=== PATIENT | male | born 1945 | race Caucasian/White ===

== ENCOUNTER 2018-09-26 10:14 | Inpatient (IN) ==
--- OUTSIDE RECORDS SUMMARY | 2018-09-26 10:26 | External Medical Summary | Continuity of Care Document ---
:1945 Author Name Bri Nolen Address Unavailable Unavailable , Care Team Providers Name Role Phone Brett [email or web address] [email or web address] [place], [place] PILGRAM, A Unavailable Unavailable Unavailable Unavailable Unavailable Assessments Assessed Problems:Anaphylactic reactionAngioedemaAllergic rhinitisPenicillin allergyAdverse drug reaction Problems Hyperlipidemia (272.4) (E78.5) Apnea, sleep (780.57) (G47.30) Anaphylactic reaction (995.0) (T78.2XXA) Angioedema (995.1) (T78.3XXA) Allergic rhinitis (477.9) (J30.9) Penicillin allergy (V14.0) (Z88.0) Adverse drug reaction (E947.9) (T50.905A) Allergies and Adverse Reactions Amoxicillin CAPS (Allergy) Cephalosporins (Allergy) DEPO-Medrol SUSP (Allergy) lisinopril (Allergy) Penicillins (Allergy) Medications Aspirin 81 MG TABS; TAKE 1 TABLET DAILY. Refills: 0 Procedures Procedures not documented Immunizations Immunizations not documented Social History - Smoking Status Never smoker Interventions Discussion/SummaryImpression: 70-year-old male with an anaphylactic reaction question secondary to ingestion of Augmentin. He does appear to have penicillin allergy based on his current testing and should avoid both penicillin and Augmentin. He was felt to have itching from Solu-Medrol during his hospitalization. He does appear to be sensitive to methylprednisolone and should not be given IV Solu-Medrol. Triamcinoloneintramuscularly could be used if steroids are needed. He does have some mild environmental allergiesnone of which appear severe enough to have caused anaphylaxis. Plan: The patient has been advised to avoid penicillin products. He should not be given either Depo-Medrol or IV Solu-Medrol based on his current tests. If he needs steroids IM triamcinolone could beconsidered. His mild environment allergies can be controlled with [id number] antihistamines asneeded. See me as needed for follow-up. Plan of Treatment Planned Observations Planned Goals not documented Results No Known Results Results not documented Encounters Appointment; Oneal Quiroz M.D. 14-Mar-2016 11:30 Encounter Diagnosis: Problem not documented
[2018-09-26] MEDS ORDERED: DEXAMETHASONE **PF** INJ 10 MG/ML VIAL IV STA (10:31)
[2018-09-26] MEDS ORDERED: EPINEPHRINE ADULT AUTO-INJECT 0.3 MG SYR IM STA (10:32)
[2018-09-26] MEDS ORDERED: EPINEPHRINE ADULT AUTO-INJECT 0.3 MG SYR IM ONE (10:34)
[2018-09-26] MEDS ORDERED: RAPID SEQUENCE INDUCTION BAG ONE (10:35)
[2018-09-26] MEDS ORDERED: SODIUM CHLORIDE 0.9% 1000ML 1,000 ML IV SCH (10:45)
[2018-09-26] MEDS: DiphenhydrAMINE HCL 50 MG/ML VIAL IV STA ×3 (10:57→12:12)
[2018-09-26 10:58] LABS: Basophils # (auto) 0.03 K/uL (0-0.2); Basophils % (auto) 0.3 %; Hematocrit (blood only) 43.8 % (42-52); Immature Granulocytes # (auto) 0.02 K/uL (0.00-0.02); Immature Granulocytes % (auto) 0.2 %; Lymphocytes # (auto) 3.37 K/uL (1.2-3.4); Mean Corpuscular Hgb Conc 34.2 g/dL (32-36); Mean Corpuscular Volume 80.1 fL (80-100); Mean Platelet Volume 8.3 fL (7.4-10.4); Monocytes # (auto) 0.94 K/uL (0.11-0.59); Monocytes % (auto) 9.5 %; Neutrophils # (auto) 5.56 K/uL (1.4-6.5); Platelet Count 257 K/uL (130-400); RDW Standard Deviation 40.8 fL (36.4-46.3); Red Blood Count 5.47 M/uL (4.7-6.1); White Blood Count 9.92 K/uL (4.8-10.8)
[2018-09-26 11:07] LABS: INR 1.1 (0.9-1.1); Partial Thromboplastin Time 27.4 Seconds (21.0-31.0); Prothrombin Time 11.6 Seconds (9.0-12.0)
[2018-09-26] MEDS ORDERED: ICU PROTOCOL FOR HYPERGLYCEMIA PRN (11:14)
[2018-09-26] MEDS ORDERED: GLUCOSE 40% GEL 15 GM TUBE PO PRN (11:14)
[2018-09-26] MEDS ORDERED: MIDAZOLAM HCL 1 MG/ML 2ML VIAL IV PRN (11:14)
[2018-09-26] MEDS ORDERED: GLUCOSE 10 TABS/TUBE PO PRN (11:14)
[2018-09-26] MEDS ORDERED: CARBOHYDRATES FOR HYPOGLYCEMIA PO PRN (11:14)
[2018-09-26] MEDS ORDERED: DEXTROSE 50% 50 ML SYRINGE IV PRN (11:14)
[2018-09-26] MEDS ORDERED: fentaNYL citrate 100 MCG/2 ML VIAL IV PRN (11:14)
[2018-09-26] MEDS ORDERED: GLUCAGON FOR INJ 1 MG VIAL SQ PRN (11:14)
[2018-09-26 11:17] LABS: Albumin Level 3.5 gm/dl (3.4-5.0); BUN Creatinine Ratio 9.1 (10-20); Creatinine Clr Calc Pharmacy 86.7 ml/min; Est GFR (African American) 88.4; Est GFR (Non-African American) 76.3; Magnesium 2.1 mg/dl (1.8-2.4); Potassium 3.2 mmol/L (3.5-5.1)
[2018-09-26] MEDS ORDERED: fentaNYL citrate 100 MCG/2 ML VIAL ONE (11:18)
[2018-09-26] MEDS ORDERED: MIDAZOLAM HCL 1 MG/ML 2ML VIAL ONE ×2 (11:18)
[2018-09-26] MEDS ORDERED: PHENYLEPHRINE 1% NA SPR 15 ML BTL PRN (11:19)
[2018-09-26] MEDS ORDERED: GLYCOPYRROLATE 0.2 MG/ML VIAL ONE (11:19)
[2018-09-26 11:20] LABS: Albumin Globulin Ratio 0.8 (0.9-2); Bilirubin,Total 0.9 mg/dl (0.2-1); Globulin 4.2 gm/dl (2.5-4.0); Total Protein 7.7 gm/dl (6.4-8.2)
[2018-09-26] MEDS ORDERED: PROPOFOL IV EMULSION 10 MG/ML 20 ML VIAL IV ONE (11:23)
[2018-09-26] MEDS ORDERED: SUCCINYLCHOLINE CHLORIDE 20 MG/ML 10 ML VIAL ONE (11:23)
[2018-09-26] MEDS ORDERED: PROPOFOL IV EMULSION 10 MG/ML 100 ML VIAL IV ONE (11:39)
--- NOTE | 2018-09-26 11:52 | Critical Care Consultation ---
Date of Consultation September 26, 2018 Assessment & Plan (1) Angioedema: Reason Critically Ill: 73-year-old male with a past medical history of anaphylactic reaction to Augmentin, itching reaction to Solu-Medrol who presented to the ED with difficulty breathing when he awoke and was found to hav e critical angioedema of the larynx. He was transferred to the ICU for intubation and airway protection. Neuro - CAM ICU: POSITIVE Intubated. Sedation: Propofol drip, currently 20mcg/kg/min Analgesia: Fentanyl 50-100mcg IV Q2H PRN Cardiac - History of hypertension not on antihypertensives Aspirin held in setting of unknown angioedema Respiratory - Angioedema of unclear origin. 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 No history of MAGALY treatment. No new medications. Intubated for respiratory support. Famotidine 20 mg every 12 hours Benadryl 50 mg every 8 hours Dexamethasone 4 mg daily GI - N.p.o. Normosol 100 cc/h IVFM RENAL/LYTES - Sodium 136, potassium 3.2, chloride 103, carbon dioxide 26, creatinine 0.99 No signs of JALYN Replace lytes as needed. - Ruffin catheter in place ENDO - No history of diabetes Glucose 139-172 in the setting of steroid dosing ICU insulin protocol, SSI HEME - Hemoglobin 15.0, no clinical signs of bleeding ID - White blood cell count 9.92, no leukocytosis, afebrile No signs of infection at this time INTEGUMENTARY - Intact, atraumatic. No skin lesions, no acute integumentary process No urticaria with his presentation. See angioedema of the pharynx as noted above LINES/IV ACCESS - PIVs intact. DVT PROPHYLAXIS - Heparin 5000 units every 8 hours DVT prophylaxis Thank you for allowing us to be part of this patient's care. Please refer to Dr. Mcconnell's documentation for any further recommendations. Supervising Physician Co-Signing Physician Notes Dr. Arce was resident physician during care of patient. I separately evaluated patient for rodriguez portions of the history and the exam. I was present during the critical portion of medical decision making, and I discussed the case with the resident. I generally agree with the findings and plan. Patient required emergent intubation for laryngeal edema. Please refer to intubation note. We will continue with H2-meme 24 hours of H1 meme and steroids for 24 hours I have personally spent 50 minutes of critical care time in the direct management of this patient. This is a life/limb threatening event. This includes time spent evaluating patient, direct bedside care, chart review, placing orders, interpretation of diagnostic studies, discussion with consulta nts, patient, and/or family members regarding treatment decisions, as well as other required patient management activities. This time is exclusive of all separately billable procedures, and teaching time and separate from and in addition to any other critical care service time. History of Present Illness Reason for Consultation: Angioedema with airway compromise Requesting Physician: Luz Maria Friend DO Attending Physician: Luz Maria Friend DO History of Present Illness History unobtainable from the patient due to intubation status. On chart review he is a 73-year-old male who presented to the ED with a swollen tongue and difficulty breathing when he awoke today. He noted that he had a sore feeling tongue change in the quality of his voice last night. He received 1 dose of his EpiPen prehospitalization with no improvement in symptoms. He has a history of past anaphylactic reaction to Augmentin. He had not been noted to be taking any new medication and has no recent infections. He did not have any skin changes including itchiness, rash, or urticaria. In the emergency department he received diphenhydramine 50 mg, famotidine 20 mg, Decadron 10 mg, a repeat dose of diphenhydramine 50 mg, 2 doses of epinephrine via EpiPen, and ranitidine 50 mg prior to transfer to arrival in the ICU. On arrival to the ICU he was intubated for airway protection. Allergies Allergy/AdvReac Type Severity Reaction Status Date / Time lisinopril Allergy Severe LIP Verified 01/26/16 17:38 SWELLING,?FROM CPAP OR LISINOPRIL amoxicillin Allergy Intermediate hives,swell Verified 01/23/16 21:05 ing/redness clavulanic acid Allergy Intermediate hives,swell Verified 01/23/16 21:05 ing/redness Penicillins AdvReac Intermediate SHORTNESS Verified 01/24/16 12:02 OF BREATH Cephalosporins AdvReac Unknown KEFLEX-FEVER Verified 01/23/16 20:00 BLISTERS Home Medications Home Medications Medication Instructions Recorded Confirmed Type aspirin [Aspirin Low Dose] 81 mg PO DAILY 09/26/18 09/26/18 History Patient History Medical History HLD (hyperlipidemia) (Chronic) Morbid obesity (Chronic) Sigmoid diverticulosis (Chronic) Hypertension (Chronic) Sleep apnea (Chronic) Drug reaction (Acute) Surgical History H/O colonoscopy (Chronic) " 10/20/2013 internal hemorrhoids, otherwise stable, repeat 5 years " Family History Father AIDS Mother Multiple myeloma Brother Alzheimer disease Other Family history non-contributory Social History Preferred Language: Tuvaluan Communication Ability: Vented. 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 Appears distressed. Cooperative. Skin: No rash, no urticaria. Angioedema as noted below HEENT: Atraumatic, normocephalic. Critical angioedema of the oropharynx and laryngo-pharynx appreciated on exam and fiberoptic visualization. Tongue swelling present. No angioedema of the lips or face appreciated. Pulm: CTAB A&P. -wheezes, -rales, -rhonchi. Symmetrical chest rise. No increased work of breathing. No stridor appreciated. Cardiac: RRR, -mrg. Radial pulses intact and symmetrical. Abdominal: Nontender, nondistended, soft. BS present. Results & Data Vital Signs (Past 12 Hours) Vital Signs Temp Pulse Resp BP Pulse Ox 09/26/18 10:57 116 H 24 161/98 H 100 09/26/18 10:34 97 09/26/18 10:30 37.4 C 107 H 22 189/96 H 97 Resident Activity Tracking Resident Involvement: Resident Care Provided Care Provided: Adult Hospital Medicine (1) Angioedema Encounter type: initial encounter Qualified Code(s): T78.3XXA - Angioneurotic edema, initial encounter
[2018-09-26] MEDS: PROPOFOL 1,000 MG/100 ML VIAL IV PRN ×3 (12:00→22:49)
--- NOTE | 2018-09-26 12:01 | History & Physical Report ---
Date of Service September 26, 2018 Assessment & Plan (1) Anaphylactic reaction: (2) Angioedema: This is a 73-year-old male who has a significant past medical history of HTN, HLD, morbid obesity, PATEL on CPAP who presents to [facility] secondary to angioedema. In ED pt received benadryl 50mg x 2, Epi 0.3mg x 2, IV Dexamethasone Patient intubated under fiberoptic bronchoscope in ICU Patient under care of Audiometrist Dr. Mcconnell Please refer to railcar switcher documentation for further assessment and plan admit to ICU continue on IV Steroid x 48hr Continue IV famotidine Continue IV benadryl 50mg q8 Hyperglycemic management per ICU team Labs in a.m. Pt only outpt med is ASA 81mg which he took this morning, will discontinue for now (3) Hypertension: Blood pressure elevated likely in setting of allergic reaction Had been on lisinopril prior but was discontinued secondary to episode of angioedema Monitor BP and treat accordingly (4) HLD (hyperlipidemia): Diet controlled Had been on statin in past but discontinued after episode of angioedema (5) Sleep apnea: Patient uses CPAP at HS (6) Morbid obesity: BMI 45.6 encourage lifestyle modifications when able (7) DVT prophylaxis: Heparin SQ/SCDS Disposition: to be determined Follow up: PCP Dr. Nicole upon discharge Patient was seen and examined in collaboration with Dr. Friend, please see addendum Starting 09/27/18 patient will be under the care of Dr. Davalos History of Present Illness Chief Complaint: Angioedema Primary Care Provider: Elijah Garnett MD This is a 73-year-old male who has a significant past medical history of HTN, HLD, morbid obesity, PATEL on CPAP who presents to [facility] secondary to angioedema. History provided from records and other providers. Only medication took this morning was aspirin. Patient presented to ED with shortness of breath and airway swelling. He was transferred to ICU for intubation under fiberoptic bronchoscope. Unable to obtain history or ROS from patient. Of note patient does have a significant past medical history of anaphylaxis and angioedema in past back in January 2016. He presented to ED 01/22/2016 with swelling around left eye and rash on multiple area of scalp. He had similar reaction 1 month prior which was thought to be secondary to lisinopril therefore this was discontinued. He further was felt to have possibly had cellulitis and given 1 dose of IV Unasyn along with Augmentin. When walking outside the next day he started developing shortness of breath weakness and watering of his eyes that became progressively worse. He took Benadryl without improvement and therefore was sent to ED. He was given Benadryl and IV steroids and was admitted. Did not require intubation. There was also question if he had allergic reaction to Solu-Medrol giving increased rash and itching so this was eventually discontinued. He was discharged home from his hospitalization on Zyrtec 10 mg twice daily. He did follow up with outpatient sas programmer analyst Dr. Quiroz for rast testing. He tested + for seasonal allergies. Allergies Allergy/AdvReac Type Severity Reaction Status Date / Time lisinopril Allergy Severe LIP Verified 01/26/16 17:38 SWELLING,?FROM CPAP OR LISINOPRIL amoxicillin Allergy Intermediate hives,swell Verified 01/23/16 21:05 ing/redness clavulanic acid Allergy Intermediate hives,swell Verified 01/23/16 21:05 ing/redness Penicillins AdvReac Intermediate SHORTNESS Verified 01/24/16 12:02 OF BREATH Cephalosporins AdvReac Unknown KEFLEX-FEVER Verified 01/23/16 20:00 BLISTERS Home Medications Home Medications Medication Instructions Recorded Confirmed Type aspirin [Aspirin Low Dose] 81 mg PO DAILY 09/26/18 09/26/18 History Past Med/Surg History Medical History HLD (hyperlipidemia) (Chronic) Morbid obesity (Chronic) Sigmoid diverticulosis (Chronic) Hypertension (Chronic) Sleep apnea (Chronic) Drug reaction (Acute) Surgical History H/O colonoscopy (Chronic) " 10/20/2013 internal hemorrhoids, otherwise stable, repeat 5 years " Family History Father AIDS Mother Multiple myeloma Brother Alzheimer disease Other Family history non-contributory Social History Preferred Language: Iraqi Communication Ability: Effective 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 Beliefs That Will Affect Care: None marital status: / Current Living Situation: Family Other Information That Helps Us Care for You: No Feels Safe at Home: Yes Safety Concerns: Feels Safe At This Time Smoking Status: Former smoker Do You Dip or Chew Tobacco: No Smoking End Date: +40 years Second Hand Exposure: No Tobacco Cessation Education Requested by Patient: No Hx Alcohol Use: No Hx Substance Use: No Review of Systems Review of Systems: Unobtainable due to endotracheal tube Physical Exam Physical Exam: Gen: WD/WN, M, + intubated in no resp distress, drowsy but opens eyes to verbal stimulation, lying in bed, Head: Normocephalic, Atraumatic Eyes: Sclera normal, b/l conjunctival injection, PERRLA ENT: +obscured due to ET tube Neck: supple, no adenopathy, No JVD, Resp: +ET Tube, Clear to auscultation b/l with good chest wall rise, normal insp/exp effort, no accessory muscle use CV: regular rate, regular rhythm, no murmur, rub, gallop, or ectopy Abd: +BS x 4, protuberant abd, soft, nontender, nondistended Musculoskeletal: moves extremities active rom x 4, strength intact, good venetian blind washer strength Extremities: No edema bilaterally Skin: warm, moist, no rash, negative turgor, cap refill < 2sec Neuro:unable to assess given ET tube/somnolence : deferred Results & Data Vital Signs (Past 12 Hours) Vital Signs Temp Pulse Resp BP Pulse Ox 09/26/18 10:57 116 H 24 161/98 H 100 09/26/18 10:34 97 09/26/18 10:30 37.4 C 107 H 22 189/96 H 97 Laboratory Results Short CBC 09/26/18 Range/Units 10:43 WBC 9.92 (4.8-10.8) K/uL Hgb 15.0 (14.0-18.0) g/dL Hct 43.8 (42-52) % Plt Count 257 (130-400) K/uL BMP 09/26/18 10:43 Sodium 136 Potassium 3.2 L Chloride 103 Carbon Dioxide 26 BUN 9 Creatinine 0.99 Glucose 139 H Calcium 9.0 Liver Function 09/26/18 Range/Units 10:43 Total Bilirubin 0.9 (0.2-1) mg/dl AST 19 (15-37) U/L ALT 17 (12-78) U/L Alkaline Phosphatase 75 (45-117) U/L Albumin 3.5 (3.4-5.0) gm/dl Medications Administered Discontinued Medications Epinephrine HCl (Epipen) Confirm Administered Dose 0.3 mg IM .STK-MED ONE Stop: 09/26/18 10:35 Last Admin: 09/26/18 10:37 Dose: 0.3 mg Documented by: [id number] Epinephrine HCl (Epipen) 0.3 mg IM NOW STA Stop: 09/26/18 10:33 Last Admin: 09/26/18 10:54 Dose: Not Given Documented by: [id number] Miscellaneous () Confirm Administered Dose 1 ea .ROUTE .STK-MED ONE Stop: 09/26/18 10:36 Last Admin: 09/26/18 10:57 Dose: Not Given Documented by: [id number] ECG Rate (beats per minute): 105 Rhythm: sinus tachycardia Code Status & VTE Plan Code Status Full Code Supervising Physician Co-Signing Physician Notes I have seen and examined the patient and have discussed the case with the provider above. I agree with the assessment and plan as stated with the following exceptions. Mr. Samson is intubated and sedated, therefore, I am unable to obtain a history and it is uncertain what his trigger for anaphylaxis was. He has a h/o laryngeal edema in the past and has seen an sas programmer analyst. Will obtain a C4 level, and if low, this should prompt investigation into hereditary angioedema or acquired C1 inhibitor deficiency. Also ordered a tryptase level within a few hours after the event which may help to confirm that this was a mast cell mediated event. Cont supportive treatment as outlined by ICU staff. DO Phuc
[2018-09-26] MEDS ORDERED: PHARMACY GLYCEMIC MGMT CONSULT PRN (12:05)
--- NOTE | 2018-09-26 12:08 | Procedure Note ---
Procedure Note Date of Service September 26, 2018 Procedure Date: Noted above Procedure: Endotracheal intubation Pre-procedure Diagnosis: Angioedema Post-procedure Diagnosis: same as above Prior to Procedure: Informed Consent: emergent Attending Staff: Semaj Mccnonell DO The identity of the patient was confirmed and a bedside time out was performed. Description of Procedure: Patient was evaluated and required intubation for impending respiratory failure. The patient was prepared in the usual fashion. A fiberoptic bronchoscope was used. A 7.5 mm inner diameter endotrachial tube was placed endotracheally to 25 cm at the teeth. With oral lidocaine for anesthesia and 100 mg ketamine IV fiberoptic bronchoscope was used to enter the airway. The endotracheal tube was noted in the airway chest rise was bilateral. Bilateral breath sounds were heard without air sounds in the abdomen. Mist was noted in the endotracheal tube. End-tidal CO2 measurement was positive. Chest x-ray shows proper endotracheal tube placement. Complications: None Findings: Significant edema of the tongue, uvula, laryngeal opening Specimens: Not applicable Estimated blood loss: Zero Coding
[2018-09-26] MEDS ORDERED: PEPTAMEN 1.5 CAL 1,000 ML BAG PO PRN (12:12)
[2018-09-26] MEDS: fentaNYL citrate 100 MCG/2 ML VIAL IV PRN ×3 (12:14→19:58)
[2018-09-26] MEDS: FAMOTIDINE 20 MG in SYRINGE 3 ML IV SCH (12:15)
--- NOTE | 2018-09-26 12:29 | XRay Report ---
SINGLE VIEW CHEST CLINICAL HISTORY: Endotracheal tube placement. FINDINGS: An AP, portable, upright chest radiograph is compared to chest x-ray and chest CT dated 11/17. The examination is degraded by portable technique and patient rotation. An endotracheal tube has been placed. The tip terminates 3.5 cm above the leon. An enteric tube has also been placed and projects below the diaphragm. The heart is mildly enlarged. The pulmonary vasculature is noncongeste d. Pleural thickening at the left lung base is similar to previous. There is bibasilar atelectasis. N o large pleural effusion or Pneumothorax is seen. The bony thorax is grossly intact. IMPRESSION: 1. Endotracheal and enteric tubes have been placed as detailed above. 2. No airspace consolidation or large pleural effusion is identified. Electronically signed by: Hubert Magallon M.D. 09/26/2018 12:27 PM
[2018-09-26] MEDS: MIDAZOLAM HCL 1 MG/ML 2ML VIAL IV PRN ×2 (13:15→22:10)
[2018-09-26] MEDS: NORMOSOL-R 1,000 ML IV SCH (13:16)
[2018-09-26] MEDS: DiphenhydrAMINE HCL 50 MG/ML VIAL IV SCH ×2 (13:16→22:13)
[2018-09-26] MEDS: HEPARIN SOD 5,000 UNIT/0.5 ML VIAL SQ SCH ×2 (15:05→22:17)
[2018-09-26] MEDS: PEPTAMEN INTENSE VHP 1.0 CAL 1,000 ML BAG OG SCH (15:06)
--- NOTE | 2018-09-26 15:20 | Emergency Department Note ---
Entered by Tiffanie Rodgers acting as a scribe for History of Present Illness General Chief complaint: Allergic Reaction Stated complaint: sob/ facial & throat swelling Source: patient History of Present Illness Provider complaint: Swollen tongue Onset (ago): day(s) 1 Location: mouth (tongue ) Pain Consistency: + other (worsening ) Quality: + constant Associated symptoms: + other (Positive: swollen tongue, raspy voice, difficulty breathing Negative: tooth pain, tooth infections, itchiness); no rash The patient is a 73 year old male who presents to the ED with complaints of worsening swollen tongue that started 8 hours ago. The patient reports his tongue felt sore last night and his voice was raspy. He reports he could not breathe when he woke up. The patient states he was given EpiPen prehospitalization which did not help. The patient denies taking any medicine, tooth pain, tooth infections, rash, or itchiness. Home Medications Home Medications Medication Instructions Recorded Confirmed Type aspirin [Aspirin Low Dose] 81 mg PO DAILY 09/26/18 09/26/18 History Allergies Allergy/AdvReac Type Severity Reaction Status Date / Time lisinopril Allergy Severe LIP Verified 01/26/16 17:38 SWELLING,?FROM CPAP OR LISINOPRIL amoxicillin Allergy Intermediate hivesswetarsha Verified 01/23/16 21:05 ing/redness clavulanic acid Allergy Intermediate hives,swell Verified 01/23/16 21:05 ing/redness Penicillins AdvReac Intermediate SHORTNESS Verified 01/24/16 12:02 OF BREATH Cephalosporins AdvReac Unknown KEFLEX-FEVER Verified 01/23/16 20:00 BLISTERS Past Med/Surg History Medical History HLD (hyperlipidemia) (Chronic) Morbid obesity (Chronic) Sigmoid diverticulosis (Chronic) Hypertension (Chronic) Sleep apnea (Chronic) Drug reaction (Acute) Surgical History H/O colonoscopy (Chronic) " 10/20/2013 internal hemorrhoids, otherwise stable, repeat 5 years " Family History Father AIDS Mother Multiple myeloma Brother Alzheimer disease Other Family history non-contributory Social History Preferred Language: Slovak Communication Ability: Vented. Blood Splatter Analyst Required: No Beliefs That Will Affect Care: None marital status: / Current Living Situation: Family Other Information That Helps Us Care for You: No Feels Safe at Home: Yes Safety Concerns: Feels Safe At This Time Smoking Status: Former smoker Do You Dip or Chew Tobacco: No Smoking End Date: +40 years Second Hand Exposure: No Tobacco Cessation Education Requested by Patient: No Hx Alcohol Use: No Hx Substance Use: No Review of Systems See HPI for pertinent positives & negatives. and A total of 10 systems reviewed and were otherwise negative Physical Exam Vital Signs Vital Signs - 24 hr 09/26/18 19:00 09/26/18 19:31 09/26/18 19:45 Temperature End-Tidal CO2 33 34 Pulse Rate 75 72 72 Pulse Rate from SpO2 Sensor 75 Respiratory Rate 14 Respiratory Effort / Characteristics Respiratory Depth Respiratory Pattern Blood Pressure 99/67 L Blood Pressure Mean 77 Pulse Oximetry 99 99 Pulse Oximetry [Right Index Finger] Oxygen Delivery Method Oxygen Delivery Method [Right Index Finger] Oxygen Flow Rate Fraction of Inspired Oxygen 40 09/26/18 19:59 09/26/18 20:00 09/26/18 20:01 Temperature 36.6 C End-Tidal CO2 42 38 Pulse Rate 84 83 Pulse Rate from SpO2 Sensor 84 83 Respiratory Rate Respiratory Effort / Characteristics Mechanically Ventilated Respiratory Depth Respiratory Pattern Regular Blood Pressure 146/94 H 147/89 H Blood Pressure Mean 111 108 Pulse Oximetry 98 98 Pulse Oximetry [Right Index Finger] Oxygen Delivery Method Mechanical Vent Oxygen Delivery Method [Right Index Finger] Oxygen Flow Rate Fraction of Inspired Oxygen 30 09/26/18 21:00 09/26/18 22:00 09/26/18 23:00 Temperature End-Tidal CO2 34 36 34 Pulse Rate 73 72 66 Pulse Rate from SpO2 Sensor 74 72 66 Respiratory Rate Respiratory Effort / Characteristics Respiratory Depth Respiratory Pattern Blood Pressure 106/74 120/76 118/74 Blood Pressure Mean 84 90 88 Pulse Oximetry 97 97 96 Pulse Oximetry [Right Index Finger] Oxygen Delivery Method Oxygen Delivery Method [Right Index Finger] Oxygen Flow Rate Fraction of Inspired Oxygen 09/26/18 23:15 09/27/18 00:00 09/27/18 01:00 Temperature 36.6 C End-Tidal CO2 34 33 37 Pulse Rate 67 67 65 Pulse Rate from SpO2 Sensor 67 65 Respiratory Rate 12 Respiratory Effort / Characteristics Respiratory Depth Respiratory Pattern Blood Pressure 122/76 115/75 Blood Pressure Mean 91 88 Pulse Oximetry 95 96 95 Pulse Oximetry [Right Index Finger] Oxygen Delivery Method Oxygen Delivery Method [Right Index Finger] Oxygen Flow Rate Fraction of Inspired Oxygen 30 30 09/27/18 01:43 09/27/18 02:00 09/27/18 02:05 Temperature End-Tidal CO2 34 35 Pulse Rate 63 64 62 Pulse Rate from SpO2 Sensor 65 Respiratory Rate 12 Respiratory Effort / Characteristics Respiratory Depth Respiratory Pattern Blood Pressure 116/77 Blood Pressure Mean 90 Pulse Oximetry 97 97 Pulse Oximetry [Right Index Finger] Oxygen Delivery Method Oxygen Delivery Method [Right Index Finger] Oxygen Flow Rate Fraction of Inspired Oxygen 30 09/27/18 04:00 09/27/18 05:10 09/27/18 07:00 Temperature 36.5 C End-Tidal CO2 38 39 Pulse Rate 58 L 64 Pulse Rate from SpO2 Sensor 64 Respiratory Rate 14 13 Respiratory Effort / Characteristics Respiratory Depth Respiratory Pattern Blood Pressure 146/88 H Blood Pressure Mean 107 Pulse Oximetry 96 98 Pulse Oximetry [Right Index Finger] Oxygen Delivery Method Mechanical Vent Oxygen Delivery Method [Right Index Finger] Oxygen Flow Rate Fraction of Inspired Oxygen 30 30 30 09/27/18 07:52 09/27/18 08:00 09/27/18 09:00 Temperature End-Tidal CO2 42 35 39 Pulse Rate 66 64 58 L Pulse Rate from SpO2 Sensor 63 58 L Respiratory Rate 15 14 10 L Respiratory Effort / Characteristics Mechanically Ventilated Respiratory Depth Normal Respiratory Pattern Blood Pressure 137/90 133/83 Blood Pressure Mean 105 99 Pulse Oximetry 99 98 99 Pulse Oximetry [Right Index Finger] Oxygen Delivery Method Mechanical Vent Mechanical Vent Oxygen Delivery Method [Right Index Finger] Oxygen Flow Rate Fraction of Inspired Oxygen 30 30 30 09/27/18 10:00 09/27/18 10:39 09/27/18 11:00 Temperature End-Tidal CO2 36 25 37 Pulse Rate 54 L 78 72 Pulse Rate from SpO2 Sensor 60 71 Respiratory Rate 15 2 L 15 Respiratory Effort / Characteristics Respiratory Depth Respiratory Pattern Blood Pressure 178/96 H 176/94 H Blood Pressure Mean 123 121 Pulse Oximetry 99 100 95 Pulse Oximetry [Right Index Finger] Oxygen Delivery Method Mechanical Vent Mechanical Vent Oxygen Delivery Method [Right Index Finger] Oxygen Flow Rate Fraction of Inspired Oxygen 30 30 30 09/27/18 11:14 09/27/18 12:00 09/27/18 13:00 Temperature 36.7 C 36.7 C End-Tidal CO2 38 37 Pulse Rate 69 70 70 Pulse Rate from SpO2 Sensor 67 70 Respiratory Rate 12 Respiratory Effort / Characteristics Respiratory Depth Respiratory Pattern Blood Pressure 161/96 H 164/94 H Blood Pressure Mean 117 117 Pulse Oximetry 94 97 Pulse Oximetry [Right Index Finger] 100 Oxygen Delivery Method Mechanical Vent Oxygen Delivery Method [Right Index Finger] Mechanical Vent Oxygen Flow Rate 30 Fraction of Inspired Oxygen 30 09/27/18 14:00 09/27/18 14:02 09/27/18 15:00 Temperature End-Tidal CO2 40 34 36 Pulse Rate 71 70 67 Pulse Rate from SpO2 Sensor 71 66 Respiratory Rate 12 Respiratory Effort / Characteristics Respiratory Depth Respiratory Pattern Blood Pressure 140/94 157/96 H Blood Pressure Mean 109 116 Pulse Oximetry 96 96 97 Pulse Oximetry [Right Index Finger] Oxygen Delivery Method Mechanical Vent Mechanical Vent Oxygen Delivery Method [Right Index Finger] Oxygen Flow Rate 30 30 Fraction of Inspired Oxygen 30 09/27/18 16:00 09/27/18 17:00 09/27/18 18:12 Temperature End-Tidal CO2 47 40 37 Pulse Rate 74 71 80 Pulse Rate from SpO2 Sensor 75 71 Respiratory Rate 28 H Respiratory Effort / Characteristics Respiratory Depth Respiratory Pattern Blood Pressure 174/91 H 150/88 H Blood Pressure Mean 118 108 Pulse Oximetry 100 96 97 Pulse Oximetry [Right Index Finger] Oxygen Delivery Method Mechanical Vent Mechanical Vent Oxygen Delivery Method [Right Index Finger] Oxygen Flow Rate Fraction of Inspired Oxygen 30 30 30 Vital signs reviewed. General: Well-appearing, morbidly obese, in no significant distress. HEENT: No scleral icterus, PERRLA, neck supple. Atraumatic. Swollen tongue. Soft palate not visualized. Swelling to the submandibular region. Muffled voice Cardiovascular: Tachycardic rate and regular rhythm, no extra sounds. Pulmonary: Clear to auscultation bilaterally, normal work of breathing. Abdomen: Soft, nontender, nondistended, positive bowel sounds. Musculoskeletal: Atraumatic, no peripheral edema. Neurologic: Patient awake alert and oriented x 3. Skin: Warm, dry, no rash Course 1029: Past medical records reviewed. The patient was evaluated in room A10 but moved to A1 for acuity. A complete history and physical examination was performed. 1040: Anesthesiology was consulted, Dr. Leong The patient is in the ICU. Administered Medications Diphenhydramine HCl (Benadryl) 50 mg IV Q8 [facility] Stop: 10/26/18 13:59 Last Admin: 09/27/18 14:47 Dose: 50 mg Documented by: [id number] Admin: 09/27/18 05:22 Dose: 50 mg Documented by: [id number] Admin: 09/26/18 22:13 Dose: 50 mg Documented by: [id number] Admin: 09/26/18 13:16 Dose: 50 mg Documented by: [id number] Fentanyl Citrate (Fentanyl Citrate) 50 mcg IV Q2H PRN PRN Reason: Moderate Pain (4,5,6) Stop: 10/10/18 11:13 Last Admin: 09/27/18 16:02 Dose: 50 mcg Documented by: [id number] Fentanyl Citrate (Fentanyl Citrate) 100 mcg IV Q2H PRN PRN Reason: Severe Pain (7,8,9,10) Stop: 10/10/18 11:13 Last Admin: 09/27/18 03:12 Dose: 100 mcg Documented by: [id number] Admin: 09/27/18 00:13 Dose: 100 mcg Documented by: [id number] Admin: 09/26/18 19:58 Dose: 100 mcg Documented by: [id number] Admin: 09/26/18 17:15 Dose: 100 mcg Documented by: [id number] Admin: 09/26/18 12:14 Dose: 100 mcg Documented by: [id number] Heparin Sodium (Porcine) (Heparin Sodium (Porcine)) 5,000 units SQ Q8H [facility] Stop: 10/26/18 13:59 Last Admin: 09/27/18 14:47 Dose: 5,000 units Documented by: [id number] Cosigned by: [id number] Admin: 09/27/18 05:24 Dose: 5,000 units Documented by: [id number] Cosigned by: [id number] Admin: 09/26/18 22:17 Dose: 5,000 units Documented by: [id number] Cosigned by: [id number] Admin: 09/26/18 15:05 Dose: 5,000 units Documented by: [id number] Cosigned by: [id number] Parenteral Electrolytes (Normosol-R) 1,000 mls @ 100 mls/hr IV .Q10H [facility] Stop: 10/26/18 11:13 Last Admin: 09/27/18 10:26 Dose: 100 mls/hr Documented by: [id number] Infusion: 09/27/18 10:26 Dose: 100 mls/hr Documented by: [id number] Admin: 09/27/18 00:31 Dose: 100 mls/hr Documented by: [id number] Infusion: 09/26/18 23:16 Dose: 100 mls/hr Documented by: [id number] Admin: 09/26/18 13:16 Dose: 100 mls/hr Documented by: [id number] Famotidine 20 mg/ Syringe 5 mls @ 2.5 mls/min IV Q12H [facility] Stop: 10/26/18 12:14 Last Admin: 09/27/18 11:42 Dose: 2.5 mls/min Documented by: [id number] Admin: 09/27/18 00:38 Dose: 2.5 mls/min Documented by: [id number] Admin: 09/26/18 12:15 Dose: 2.5 mls/min Documented by: [id number] Insulin Aspart (Novolog Flexpen) 0 units SC Q4 [facility] Stop: 10/26/18 17:59 Last Admin: 09/27/18 16:29 Dose: 1 units Documented by: [id number] Cosigned by: [id number] Admin: 09/27/18 12:02 Dose: 1 units Documented by: [id number] Cosigned by: [id number] Admin: 09/27/18 08:11 Dose: 1 units Documented by: [id number] Cosigned by: [id number] Admin: 09/27/18 04:48 Dose: 1 units Documented by: [id number] Cosigned by: [id number] Admin: 09/27/18 00:35 Dose: 2 units Documented by: [id number] Cosigned by: [id number] Admin: 09/26/18 20:33 Dose: 1 units Documented by: [id number] Cosigned by: [id number] Midazolam HCl (Versed) 2 mg IV Q2H PRN PRN Reason: agitation/anxiety Stop: 10/26/18 11:13 Last Admin: 09/27/18 17:47 Dose: 2 mg Documented by: [id number] Admin: 09/27/18 14:48 Dose: 2 mg Documented by: [id number] Admin: 09/27/18 11:35 Dose: 2 mg Documented by: [id number] Admin: 09/27/18 07:43 Dose: 2 mg Documented by: [id number] Admin: 09/27/18 02:37 Dose: 2 mg Documented by: [id number] Admin: 09/26/18 22:10 Dose: 2 mg Documented by: [id number] Admin: 09/26/18 13:15 Dose: 2 mg Documented by: [id number] Nutritional Formula (Peptamen Intense Vhp) 1,000 ml [facility]G [facility]; Protocol Stop: 10/26/18 13:59 Last Admin: 09/27/18 18:34 Dose: 1,000 ml Documented by: [id number] Admin: 09/26/18 15:06 Dose: 1,000 ml Documented by: [id number] Discontinued Medications Dexamethasone Sodium Phosphate (Decadron Pf) 10 mg IV NOW STA Stop: 09/26/18 10:32 Last Admin: 09/26/18 12:11 Dose: Not Given Documented by: [id number] Diphenhydramine HCl (Benadryl) 50 mg IV NOW STA Stop: 09/26/18 10:32 Last Admin: 09/26/18 12:12 Dose: Not Given Documented by: [id number] Epinephrine HCl (Epipen) Confirm Administered Dose 0.3 mg IM .STK-MED ONE Stop: 09/26/18 10:35 Last Admin: 09/26/18 10:37 Dose: 0.3 mg Documented by: [id number] Epinephrine HCl (Epipen) 0.3 mg IM NOW STA Stop: 09/26/18 10:33 Last Admin: 09/26/18 10:54 Dose: Not Given Documented by: [id number] Ranitidine HCl 50 mg/ Dextrose 102 mls @ 200 mls/hr IV NOW STA Stop: 09/26/18 11:01 Last Admin: 09/26/18 12:11 Dose: Not Given Documented by: [id number] Sodium Chloride (Nss 1000ml) 1,000 mls @ 100 mls/hr IV .Q10H [facility] Stop: 09/26/18 20:44 Last Admin: 09/26/18 12:10 Dose: Not Given Documented by: [id number] Propofol (Diprivan) 1,000 mg in 100 mls @ 11.529 mls/hr IV .Q8H41M PRN; Protocol PRN Reason: Titration Stop: 09/29/18 11:13 Last Titration: 09/27/18 14:04 Dose: 0 mcg/kg/min, 0 mls/hr Documented by: [id number] Titration: 09/27/18 07:46 Dose: 0 mcg/kg/min, 0 mls/hr Documented by: [id number] Titration: 09/27/18 07:26 Dose: 15 mcg/kg/min, 11.5 mls/hr Documented by: [id number] Cosigned by: [id number] Admin: 09/27/18 04:17 Dose: 20 mcg/kg/min, 15.4 mls/hr Documented by: [id number] Cosigned by: [id number] Titration: 09/27/18 04:17 Dose: 15 mcg/kg/min, 11.5 mls/hr Documented by: [id number] Cosigned by: [id number] Titration: 09/27/18 02:44 Dose: 15 mcg/kg/min, 11.5 mls/hr Documented by: [id number] Admin: 09/26/18 22:49 Dose: 20 mcg/kg/min, 15.4 mls/hr Documented by: [id number] Cosigned by: [id number] Titration: 09/26/18 20:53 Dose: 20 mcg/kg/min, 15.4 mls/hr Documented by: [id number] Cosigned by: [id number] Titration: 09/26/18 19:08 Dose: 20 mcg/kg/min, 15.4 mls/hr Documented by: [id number] Cosigned by: [id number] Titration: 09/26/18 18:02 Dose: 20 mcg/kg/min, 15.4 mls/hr Documented by: [id number] Titration: 09/26/18 15:09 Dose: 25 mcg/kg/min, 19.2 mls/hr Documented by: [id number] Admin: 09/26/18 15:07 Dose: 30 mcg/kg/min, 23.1 mls/hr Documented by: [id number] Cosigned by: [id number] Titration: 09/26/18 15:07 Dose: 30 mcg/kg/min, 23.1 mls/hr Documented by: [id number] Cosigned by: [id number] Titration: 09/26/18 12:35 Dose: 30 mcg/kg/min, 23.1 mls/hr Documented by: [id number] Titration: 09/26/18 12:30 Dose: 25 mcg/kg/min, 19.2 mls/hr Documented by: [id number] Titration: 09/26/18 12:15 Dose: 20 mcg/kg/min, 15.4 mls/hr Documented by: [id number] Titration: 09/26/18 12:10 Dose: 15 mcg/kg/min, 11.5 mls/hr Documented by: [id number] Titration: 09/26/18 12:05 Dose: 10 mcg/kg/min, 7.7 mls/hr Documented by: [id number] Admin: 09/26/18 12:00 Dose: 5 mcg/kg/min, 3.8 mls/hr Documented by: [id number] Cosigned by: [id number] Dexamethasone Sodium Phosphate (4 mg/ Syringe) 1 mls @ 1 mls/min IV DAILY [facility] Stop: 09/27/18 09:00 Last Admin: 09/27/18 08:08 Dose: 1 mls/min Documented by: [id number] Admin: 09/26/18 16:16 Dose: 1 mls/min Documented by: [id number] Miscellaneous () Confirm Administered Dose 1 ea .ROUTE .STK-MED ONE Stop: 09/26/18 10:36 Last Admin: 09/26/18 10:57 Dose: Not Given Documented by: [id number] Propofol (Diprivan) Confirm Administered Dose 1,000 mg IV .STK-MED ONE Stop: 09/26/18 11:40 Last Admin: 09/26/18 12:26 Dose: Not Given Documented by: [id number] Medical Decision Making Differential Diagnosis Differential diagnosis: Etiologies such as allergic reaction, anaphylaxis, urticaria, angioedema, Hernandez-Blayne syndrome, toxic epidermal necrolysis, erythema multiforme, cellulitis, as well as others were entertained. Medical Records Attestation: I reviewed the patient's medical records. Home Medications Current Medication List: was personally reviewed by me Laboratory Data Attestation: I reviewed the patient's lab results. Result diagrams: 09/27/18 04:24 09/27/18 04:24 Lab Results 09/26/18 09/26/18 09/26/18 Range/Units 10:43 10:43 10:43 WBC 9.92 (4.8-10.8) K/uL RBC 5.47 (4.7-6.1) M/uL Hgb 15.0 (14.0-18.0) g/dL Hct 43.8 (42-52) % MCV 80.1 (80-100) fL MCH 27.4 (25-34) pg MCHC 34.2 (32-36) g/dL RDW Std Deviation 40.8 (36.4-46.3) fL RDW Coeff of Kip 14.0 (11.5-14.5) % Plt Count 257 (130-400) K/uL MPV 8.3 (7.4-10.4) fL Immature Gran % (Auto) 0.2 % Neut % (Auto) 56.0 % Lymph % (Auto) 34.0 % [place] % (Auto) 9.5 % Eos % (Auto) 0.0 % Baso % (Auto) 0.3 % Immature Gran # (Auto) 0.02 (0.00-0.02) K/uL Neut # (Auto) 5.56 (1.4-6.5) K/uL Lymph # (Auto) 3.37 (1.2-3.4) K/uL [place] # (Auto) 0.94 H (0.11-0.59) K/uL Eos # (Auto) 0.00 (0-0.5) K/uL Baso # (Auto) 0.03 (0-0.2) K/uL PT 11.6 (9.0-12.0) Seconds INR 1.1 (0.9-1.1) APTT 27.4 (21.0-31.0) Seconds PTT Ratio 1.0 Sodium 136 (136-145) mmol/L Potassium 3.2 L (3.5-5.1) mmol/L Chloride 103 (98-107) mmol/L Carbon Dioxide 26 (21-32) mmol/L Anion Gap 7.0 (3-11) BUN 9 (7-18) mg/dl Creatinine 0.99 (0.6-1.4) mg/dl Est Cr Clr Drug Dosing 86.7 ml/min Est GFR ( Amer) 88.4 Est GFR (Non-Af Amer) 76.3 BUN/Creatinine Ratio 9.1 L (10-20) Glucose 139 H (70-99) mg/dl POC Glucose (70-99) Estimat Average Glucose mg/dl Hemoglobin A1c (4.5-5.6) % Calcium 9.0 (8.5-10.1) mg/dl Magnesium 2.1 (1.8-2.4) mg/dl Total Bilirubin 0.9 (0.2-1) mg/dl AST 19 (15-37) U/L ALT 17 (12-78) U/L Alkaline Phosphatase 75 (45-117) U/L Total Protein 7.7 (6.4-8.2) gm/dl Albumin 3.5 (3.4-5.0) gm/dl Globulin 4.2 H (2.5-4.0) gm/dl Albumin/Globulin Ratio 0.8 L (0.9-2) Urine Color Urine Appearance (Clear) Urine pH (4.5-7.5) Ur Specific [place] (1.000-1.030) Urine Protein (Negative) Urine Glucose (UA) (Negative) Urine Ketones (Negative) Urine Blood (Negative) Urine Nitrite (Negative) Urine Bilirubin (Negative) Urine Urobilinogen (Negative) Ur Leukocyte Esterase (Negative) Urine WBC (Auto) (0-5) /hpf Urine RBC (Auto) (0-4) /hpf U Hyaline Cast (Auto) (0-5) /lpf U Epithel Cells (Auto) (0-5) /lpf Urine Bacteria (Auto) (Negative) Nasal Screen MRSA (PCR) (Negative) Hepatitis C Ab Screen (Neg) 09/26/18 09/26/18 09/26/18 Range/Units 12:30 15:50 16:43 WBC (4.8-10.8) K/uL RBC (4.7-6.1) M/uL Hgb (14.0-18.0) g/dL Hct (42-52) % MCV (80-100) fL MCH (25-34) pg MCHC (32-36) g/dL RDW Std Deviation (36.4-46.3) fL RDW Coeff of Kip (11.5-14.5) % Plt Count (130-400) K/uL MPV (7.4-10.4) fL Immature Gran % (Auto) % Neut % (Auto) % Lymph % (Auto) % [place] % (Auto) % Eos % (Auto) % Baso % (Auto) % Immature Gran # (Auto) (0.00-0.02) K/uL Neut # (Auto) (1.4-6.5) K/uL Lymph # (Auto) (1.2-3.4) K/uL [place] # (Auto) (0.11-0.59) K/uL Eos # (Auto) (0-0.5) K/uL Baso # (Auto) (0-0.2) K/uL PT (9.0-12.0) Seconds INR (0.9-1.1) APTT (21.0-31.0) Seconds PTT Ratio Sodium (136-145) mmol/L Potassium (3.5-5.1) mmol/L Chloride (98-107) mmol/L Carbon Dioxide (21-32) mmol/L Anion Gap (3-11) BUN (7-18) mg/dl Creatinine (0.6-1.4) mg/dl Est Cr Clr Drug Dosing ml/min Est GFR ( Amer) Est GFR (Non-Af Amer) BUN/Creatinine Ratio (10-20) Glucose (70-99) mg/dl POC Glucose 172 H (70-99) Estimat Average Glucose mg/dl Hemoglobin A1c (4.5-5.6) % Calcium (8.5-10.1) mg/dl Magnesium (1.8-2.4) mg/dl Total Bilirubin (0.2-1) mg/dl AST (15-37) U/L ALT (12-78) U/L Alkaline Phosphatase (45-117) U/L Total Protein (6.4-8.2) gm/dl Albumin (3.4-5.0) gm/dl Globulin (2.5-4.0) gm/dl Albumin/Globulin Ratio (0.9-2) Urine Color Yellow Urine Appearance Clear (Clear) Urine pH 5.0 (4.5-7.5) Ur Specific [place] 1.015 (1.000-1.030) Urine Protein Negative (Negative) Urine Glucose (UA) Negative (Negative) Urine Ketones 2+ H (Negative) Urine Blood Trace H (Negative) Urine Nitrite Negative (Negative) Urine Bilirubin Negative (Negative) Urine Urobilinogen Negative (Negative) Ur Leukocyte Esterase Negative (Negative) Urine WBC (Auto) 1-5 (0-5) /hpf Urine RBC (Auto) 0-4 (0-4) /hpf U Hyaline Cast (Auto) 5-10 H (0-5) /lpf U Epithel Cells (Auto) 10-20 H (0-5) /lpf Urine Bacteria (Auto) Negative (Negative) Nasal Screen MRSA (PCR) Negative (Negative) Hepatitis C Ab Screen (Neg) 09/26/18 09/27/18 09/27/18 Range/Units 20:10 00:33 04:24 WBC 5.93 (4.8-10.8) K/uL RBC 4.66 L (4.7-6.1) M/uL Hgb 12.4 L (14.0-18.0) g/dL Hct 37.5 L (42-52) % MCV 80.5 (80-100) fL MCH 26.6 (25-34) pg MCHC 33.1 (32-36) g/dL RDW Std Deviation 41.0 (36.4-46.3) fL RDW Coeff of Kip 14.1 (11.5-14.5) % Plt Count 192 (130-400) K/uL MPV 8.6 (7.4-10.4) fL Immature Gran % (Auto) 0.3 % Neut % (Auto) 86.6 % Lymph % (Auto) 10.1 % [place] % (Auto) 3.0 % Eos % (Auto) 0.0 % Baso % (Auto) 0.0 % Immature Gran # (Auto) 0.02 (0.00-0.02) K/uL Neut # (Auto) 5.13 (1.4-6.5) K/uL Lymph # (Auto) 0.60 L (1.2-3.4) K/uL [place] # (Auto) 0.18 (0.11-0.59) K/uL Eos # (Auto) 0.00 (0-0.5) K/uL Baso # (Auto) 0.00 (0-0.2) K/uL PT (9.0-12.0) Seconds INR (0.9-1.1) APTT (21.0-31.0) Seconds PTT Ratio Sodium (136-145) mmol/L Potassium (3.5-5.1) mmol/L Chloride (98-107) mmol/L Carbon Dioxide (21-32) mmol/L Anion Gap (3-11) BUN (7-18) mg/dl Creatinine (0.6-1.4) mg/dl Est Cr Clr Drug Dosing ml/min Est GFR ( Amer) Est GFR (Non-Af Amer) BUN/Creatinine Ratio (10-20) Glucose (70-99) mg/dl POC Glucose 177 H 188 H (70-99) Estimat Average Glucose mg/dl Hemoglobin A1c (4.5-5.6) % Calcium (8.5-10.1) mg/dl Magnesium (1.8-2.4) mg/dl Total Bilirubin (0.2-1) mg/dl AST (15-37) U/L ALT (12-78) U/L Alkaline Phosphatase (45-117) U/L Total Protein (6.4-8.2) gm/dl Albumin (3.4-5.0) gm/dl Globulin (2.5-4.0) gm/dl Albumin/Globulin Ratio (0.9-2) Urine Color Urine Appearance (Clear) Urine pH (4.5-7.5) Ur Specific [place] (1.000-1.030) Urine Protein (Negative) Urine Glucose (UA) (Negative) Urine Ketones (Negative) Urine Blood (Negative) Urine Nitrite (Negative) Urine Bilirubin (Negative) Urine Urobilinogen (Negative) Ur Leukocyte Esterase (Negative) Urine WBC (Auto) (0-5) /hpf Urine RBC (Auto) (0-4) /hpf U Hyaline Cast (Auto) (0-5) /lpf U Epithel Cells (Auto) (0-5) /lpf Urine Bacteria (Auto) (Negative) Nasal Screen MRSA (PCR) (Negative) Hepatitis C Ab Screen (Neg) 09/27/18 09/27/18 09/27/18 Range/Units 04:24 04:24 04:24 WBC (4.8-10.8) K/uL RBC (4.7-6.1) M/uL Hgb (14.0-18.0) g/dL Hct (42-52) % MCV (80-100) fL MCH (25-34) pg MCHC (32-36) g/dL RDW Std Deviation (36.4-46.3) fL RDW Coeff of Kip (11.5-14.5) % Plt Count (130-400) K/uL MPV (7.4-10.4) fL Immature Gran % (Auto) % Neut % (Auto) % Lymph % (Auto) % [place] % (Auto) % Eos % (Auto) % Baso % (Auto) % Immature Gran # (Auto) (0.00-0.02) K/uL Neut # (Auto) (1.4-6.5) K/uL Lymph # (Auto) (1.2-3.4) K/uL [place] # (Auto) (0.11-0.59) K/uL Eos # (Auto) (0-0.5) K/uL Baso # (Auto) (0-0.2) K/uL PT (9.0-12.0) Seconds INR (0.9-1.1) APTT (21.0-31.0) Seconds PTT Ratio Sodium 139 (136-145) mmol/L Potassium 3.8 D (3.5-5.1) mmol/L Chloride 110 H (98-107) mmol/L Carbon Dioxide 26 (21-32) mmol/L Anion Gap 3.0 (3-11) BUN 14 D (7-18) mg/dl Creatinine 0.71 (0.6-1.4) mg/dl Est Cr Clr Drug Dosing 118.1 ml/min Est GFR ( Amer) 109.4 Est GFR (Non-Af Amer) 94.4 BUN/Creatinine Ratio 19.1 (10-20) Glucose 169 H (70-99) mg/dl POC Glucose (70-99) Estimat Average Glucose 117 mg/dl Hemoglobin A1c 5.7 H (4.5-5.6) % Calcium 8.5 (8.5-10.1) mg/dl Magnesium (1.8-2.4) mg/dl Total Bilirubin (0.2-1) mg/dl AST (15-37) U/L ALT (12-78) U/L Alkaline Phosphatase (45-117) U/L Total Protein (6.4-8.2) gm/dl Albumin (3.4-5.0) gm/dl Globulin (2.5-4.0) gm/dl Albumin/Globulin Ratio (0.9-2) Urine Color Urine Appearance (Clear) Urine pH (4.5-7.5) Ur Specific [place] (1.000-1.030) Urine Protein (Negative) Urine Glucose (UA) (Negative) Urine Ketones (Negative) Urine Blood (Negative) Urine Nitrite (Negative) Urine Bilirubin (Negative) Urine Urobilinogen (Negative) Ur Leukocyte Esterase (Negative) Urine WBC (Auto) (0-5) /hpf Urine RBC (Auto) (0-4) /hpf U Hyaline Cast (Auto) (0-5) /lpf U Epithel Cells (Auto) (0-5) /lpf Urine Bacteria (Auto) (Negative) Nasal Screen MRSA (PCR) (Negative) Hepatitis C Ab Screen Neg (Neg) 09/27/18 09/27/18 09/27/18 Range/Units 04:43 08:04 11:59 WBC (4.8-10.8) K/uL RBC (4.7-6.1) M/uL Hgb (14.0-18.0) g/dL Hct (42-52) % MCV (80-100) fL MCH (25-34) pg MCHC (32-36) g/dL RDW Std Deviation (36.4-46.3) fL RDW Coeff of [place]ip (11.5-14.5) % Plt Count (130-400) K/uL MPV (7.4-10.4) fL Immature Gran % (Auto) % Neut % (Auto) % Lymph % (Auto) % [place] % (Auto) % Eos % (Auto) % Baso % (Auto) % Immature Gran # (Auto) (0.00-0.02) K/uL Neut # (Auto) (1.4-6.5) K/uL Lymph # (Auto) (1.2-3.4) K/uL [place] # (Auto) (0.11-0.59) K/uL Eos # (Auto) (0-0.5) K/uL Baso # (Auto) (0-0.2) K/uL PT (9.0-12.0) Seconds INR (0.9-1.1) APTT (21.0-31.0) Seconds PTT Ratio Sodium (136-145) mmol/L Potassium (3.5-5.1) mmol/L Chloride (98-107) mmol/L Carbon Dioxide (21-32) mmol/L Anion Gap (3-11) BUN (7-18) mg/dl Creatinine (0.6-1.4) mg/dl Est Cr Clr Drug Dosing ml/min Est GFR ( Amer) Est GFR (Non-Af Amer) BUN/Creatinine Ratio (10-20) Glucose (70-99) mg/dl POC Glucose 153 H 128 H 124 H (70-99) Estimat Average Glucose mg/dl Hemoglobin A1c (4.5-5.6) % Calcium (8.5-10.1) mg/dl Magnesium (1.8-2.4) mg/dl Total Bilirubin (0.2-1) mg/dl AST (15-37) U/L ALT (12-78) U/L Alkaline Phosphatase (45-117) U/L Total Protein (6.4-8.2) gm/dl Albumin (3.4-5.0) gm/dl Globulin (2.5-4.0) gm/dl Albumin/Globulin Ratio (0.9-2) Urine Color Urine Appearance (Clear) Urine pH (4.5-7.5) Ur Specific [place] (1.000-1.030) Urine Protein (Negative) Urine Glucose (UA) (Negative) Urine Ketones (Negative) Urine Blood (Negative) Urine Nitrite (Negative) Urine Bilirubin (Negative) Urine Urobilinogen (Negative) Ur Leukocyte Esterase (Negative) Urine WBC (Auto) (0-5) /hpf Urine RBC (Auto) (0-4) /hpf U Hyaline Cast (Auto) (0-5) /lpf U Epithel Cells (Auto) (0-5) /lpf Urine Bacteria (Auto) (Negative) Nasal Screen MRSA (PCR) (Negative) Hepatitis C Ab Screen (Neg) 09/27/18 Range/Units 16:15 WBC (4.8-10.8) K/uL RBC (4.7-6.1) M/uL Hgb (14.0-18.0) g/dL Hct (42-52) % MCV (80-100) fL MCH (25-34) pg MCHC (32-36) g/dL RDW Std Deviation (36.4-46.3) fL RDW Coeff of Kip (11.5-14.5) % Plt Count (130-400) K/uL MPV (7.4-10.4) fL Immature Gran % (Auto) % Neut % (Auto) % Lymph % (Auto) % [place] % (Auto) % Eos % (Auto) % Baso % (Auto) % Immature Gran # (Auto) (0.00-0.02) K/uL Neut # (Auto) (1.4-6.5) K/uL Lymph # (Auto) (1.2-3.4) K/uL [place] # (Auto) (0.11-0.59) K/uL Eos # (Auto) (0-0.5) K/uL Baso # (Auto) (0-0.2) K/uL PT (9.0-12.0) Seconds INR (0.9-1.1) APTT (21.0-31.0) Seconds PTT Ratio Sodium (136-145) mmol/L Potassium (3.5-5.1) mmol/L Chloride (98-107) mmol/L Carbon Dioxide (21-32) mmol/L Anion Gap (3-11) BUN (7-18) mg/dl Creatinine (0.6-1.4) mg/dl Est Cr Clr Drug Dosing ml/min Est GFR ( Amer) Est GFR (Non-Af Amer) BUN/Creatinine Ratio (10-20) Glucose (70-99) mg/dl POC Glucose 137 H (70-99) Estimat Average Glucose mg/dl Hemoglobin A1c (4.5-5.6) % Calcium (8.5-10.1) mg/dl Magnesium (1.8-2.4) mg/dl Total Bilirubin (0.2-1) mg/dl AST (15-37) U/L ALT (12-78) U/L Alkaline Phosphatase (45-117) U/L Total Protein (6.4-8.2) gm/dl Albumin (3.4-5.0) gm/dl Globulin (2.5-4.0) gm/dl Albumin/Globulin Ratio (0.9-2) Urine Color Urine Appearance (Clear) Urine pH (4.5-7.5) Ur Specific [place] (1.000-1.030) Urine Protein (Negative) Urine Glucose (UA) (Negative) Urine Ketones (Negative) Urine Blood (Negative) Urine Nitrite (Negative) Urine Bilirubin (Negative) Urine Urobilinogen (Negative) Ur Leukocyte Esterase (Negative) Urine WBC (Auto) (0-5) /hpf Urine RBC (Auto) (0-4) /hpf U Hyaline Cast (Auto) (0-5) /lpf U Epithel Cells (Auto) (0-5) /lpf Urine Bacteria (Auto) (Negative) Nasal Screen MRSA (PCR) (Negative) Hepatitis C Ab Screen (Neg) Imaging Data Radiologist's Impression: Radiology results as stated below per my review and the radiologist's interpretation: SINGLE VIEW CHEST CLINICAL HISTORY: Endotracheal tube placement. FINDINGS: An AP, portable, upright chest radiograph is compared to chest x-ray and chest CT dated 12/06/2015. The examination is degraded by portable technique and patient rotation. An endotracheal tube has been placed. The tip terminates 3.5 cm above the leon. An enteric tube has also been placed and projects below the diaphragm. The heart is mildly enlarged. The pulmonary vasculature is noncongested. Pleural thickening at the left lung base is similar to previous. There is bibasilar atelectasis. No large pleural effusion or Pneumothorax is seen. The bony thorax is grossly intact. IMPRESSION: 1. Endotracheal and enteric tubes have been placed as detailed above. 2. No airspace consolidation or large pleural effusion is identified. Electronically signed by: Hubert Magallon M.D. 09/26/2018 12:27 PM ECG Data Attestation: I personally reviewed and interpreted this ECG as follows: Indication: other (allergic reaction ) Rate (beats per minute): 105 Rhythm: sinus tachycardia Findings: + other (Pervious inferior infarct) and + nonspecific-ST abn (Lateral); no acute ischemic change Blood Pressure Blood Pressure Findings: Elevated blood pressure Blood Pressure Disposition: further management by hospitalist [facility] Narrative This patient was evaluated and appeared to be in no significant distress. IV access was obtained and laboratory work was drawn. Patient was placed on the environmental monitoring technician and found to have severe angioedema. Soft palate was not visualized. Patient was given epi IM, IM Solu-Medrol and Benadryl by EMS. Patient was given additional IV Benadryl and IM epi upon arrival to the ED. Anesthesiology was consulted due to the patient's body habitus and airway obstruction. I do feel he will warrant an awake intubation. Patient was made aware of the plan and agrees. Family was at the bedside. Dr. Lozada and Jayesh arrived in the ED for further management. The [facility] service was made aware of the admission and agreed to evaluate the patient. Impression & Plan Angioedema, Airway obstruction Discharge Plan Visit Data *Final* Discharge Date/Time: 09/26/18 10:57 Chief Complaint: Allergic Reaction Stated Complaint: sob/ facial & throat swelling ED Provider: Mackenzie Triplett Discharge Problem: Angioedema, Airway obstruction Patient Disposition: Admitted As Inpatient Discharge Instructions Interventions: ED Discharge Assessment Last Done: 09/26/18 10:57 Discharge Problem: Angioedema Qualifiers: Encounter type: initial encounter Qualified Code(s): T78.3XXA - Angioneurotic edema, initial encounter The scribe's documentation has been prepared under my direction and personally reviewed by me in its entirety. I confirm that the note above accurately reflects all work, treatment, procedures, and medical decision making performed by me.
[2018-09-26] MEDS ORDERED: SODIUM CHLORIDE 0.9% 10ML FLUSH IV ONE (16:04)
[2018-09-26] MEDS ORDERED: KETAMINE HCL INJ 50 MG/ML 10 ML VIAL IV ONE (16:04)
[2018-09-26] MEDS: DEXAMETHASONE SOD PHOSPHATE 4 MG in SYRINGE 0 ML IV SCH (16:16)
[2018-09-26 16:17] LABS: Appearance Urine Clear (Clear); Bacteria Urine Automated Negative (Negative); Bilirubin Urine Negative (Negative); Blood Urine Trace (Negative); Color Urine Yellow; Glucose Urine UA Negative (Negative); Ketones Urine 2+ (Negative); Leukocyte Esterase Urine Negative (Negative); Nitrite Urine Negative (Negative); Protein Urine Negative (Negative); RBC Urine Automated 0-4 /hpf (0-4); Specific Gravity Urine 1.015 (1.000-1.030); Urobilinogen Urine Negative (Negative)
[2018-09-26] MEDS ORDERED: PNEUMOCOCCAL ADMINISTRATION CHARGE ONE (16:30)
[2018-09-26] MEDS ORDERED: PNEUMOCOCCAL POLYSACCHARIDES 25 MCG/0.5 ML VIAL/SYR IM ONE (16:30)
[2018-09-26] MEDS ORDERED: INSULIN ASPART 100 UNITS/ML 3 ML PEN SC SCH (18:00)
[2018-09-26] MEDS: INSULIN ASPART 100 UNITS/ML 3 ML PEN SC SCH (20:33)
[2018-09-26] MEDS ORDERED: SIMVASTATIN 40 MG PO SCH (21:00)
[2018-09-27] MEDS: fentaNYL citrate 100 MCG/2 ML VIAL IV PRN ×2 (00:13→03:12)
[2018-09-27] MEDS: NORMOSOL-R 1,000 ML IV SCH ×3 (00:31→20:30)
[2018-09-27] MEDS: INSULIN ASPART 100 UNITS/ML 3 ML PEN SC SCH ×6 (00:35→20:31)
[2018-09-27] MEDS: FAMOTIDINE 20 MG in SYRINGE 3 ML IV SCH ×2 (00:38→11:42)
[2018-09-27] MEDS: MIDAZOLAM HCL 1 MG/ML 2ML VIAL IV PRN ×5 (02:37→17:47)
[2018-09-27] MEDS: PROPOFOL 1,000 MG/100 ML VIAL IV PRN (04:17)
[2018-09-27 04:32] LABS: Hematocrit (blood only) 37.5 % (42-52); Hemoglobin 12.4 g/dL (14.0-18.0); Immature Granulocytes # (auto) 0.02 K/uL (0.00-0.02); Immature Granulocytes % (auto) 0.3 %; Lymphocytes % (auto) 10.1 %; Mean Corpuscular Hgb Conc 33.1 g/dL (32-36); Mean Corpuscular Volume 80.5 fL (80-100); Mean Platelet Volume 8.6 fL (7.4-10.4); Monocytes # (auto) 0.18 K/uL (0.11-0.59); Neutrophils # (auto) 5.13 K/uL (1.4-6.5); Neutrophils % (auto) 86.6 %; Platelet Count 192 K/uL (130-400); RDW Coefficient of Variation 14.1 % (11.5-14.5); Red Blood Count 4.66 M/uL (4.7-6.1); White Blood Count 5.93 K/uL (4.8-10.8)
[2018-09-27 05:05] LABS: BUN Creatinine Ratio 19.1 (10-20); Calcium 8.5 mg/dl (8.5-10.1); Creatinine Clr Calc Pharmacy 118.1 ml/min; Est GFR (African American) 109.4; Est GFR (Non-African American) 94.4; Potassium 3.8 mmol/L (3.5-5.1)
[2018-09-27] MEDS: DiphenhydrAMINE HCL 50 MG/ML VIAL IV SCH ×3 (05:22→21:49)
[2018-09-27] MEDS: HEPARIN SOD 5,000 UNIT/0.5 ML VIAL SQ SCH ×3 (05:24→21:50)
[2018-09-27 06:08] LABS: Estimated Average Glucose 117 mg/dl; Hemoglobin A1C 5.7 % (4.5-5.6)
--- NOTE | 2018-09-27 07:13 | XRay Report ---
XR chest 1V portable CLINICAL HISTORY: intubation COMPARISON STUDY: 09/26/2018 FINDINGS: Endotracheal tube 2.6 cm both leon. Mild stable cardiomegaly. Chronic pleural thickening left base unchanged. Lungs otherwise appear clear. Poor visibility of the nasogastric tube due to bod y habitus considerations. IMPRESSION: 1. Endotracheal tube 2.6 cm both leon. 2. Mild stable cardiomegaly. The above report was generated using voice recognition software. It may contain grammatical, syntax or spelling errors. Electronically signed by: Rufus Marie M.D. 09/27/2018 7:12 AM
[2018-09-27] MEDS: DEXAMETHASONE SOD PHOSPHATE 4 MG in SYRINGE 0 ML IV SCH (08:08)
[2018-09-27] MEDS ORDERED: ASPIRIN 81 MG PO SCH (09:00)
[2018-09-27] MEDS ORDERED: DEXAMETHASONE SOD PHOSPHATE 4 MG in SYRINGE 0 ML IV SCH (09:00)
--- NOTE | 2018-09-27 09:31 | Pharmacy Report ---
Glycemic Control Consultation - Date of Service September 27, 2018 - Scope Scope: Glycemic Pharmacist consulted by Dr Mcconnell on 09/26 for glycemic control and to write orders per [facility] inpatient glycemic control protocol - Objective Weight: 122.5 kg Accuchecks BSG (last 24hrs): 09/26/18 09/26/18 09/26/18 10:43 16:43 20:10 Glucose 139 H POC Glucose 172 H 177 H 09/27/18 09/27/18 09/27/18 00:33 04:24 04:43 Glucose 169 H POC Glucose 188 H 153 H 09/27/18 08:04 Glucose POC Glucose 128 H Laboratory Data (last 24hrs): 09/26/18 09/27/18 10:43 04:24 Potassium 3.2 L 3.8 D Carbon Dioxide 26 26 Anion Gap 7.0 3.0 Creatinine 0.99 0.71 Est Cr Clr Drug Dosing 86.7 118.1 HbA1c: Hemoglobin A1c 5.7 % (4.5-5.6) H 09/27/18 04:24 - Recent Pertinent Medications Outpatient Anti-diabetic Regimen: * n/a * A1c = 5.7 % 09/27 The patient is currently receiving: * Correctional Insulin: Novolog Correction per scale ACHS Goal Range: Low 140 mg/dL - High 180 mg/dL Correction Factor: 20 mg/dL/unit * Prandial insulin: Per carb ratio of 1 unit per 10 grams CHO consumed * Oral Agents: Risk Factors for Insulin Resistance: * Steroids: Dexamethasone IV 4 mg daily x 2 * Diet: TF * Mechanical Ventilation: 09/26 - Assessment & Plan Assessment & Plan: ASSESSMENT: * Mr Samson presented with swelling tongue/angioedema with unknown allergen. Patient does have previous history of anaphylaxis with penicillins. Patient was intubated to protect airway. * No reported history of diabetes, A1c of 5.7% indicates pre-diabetes, no outpatient medications * On dexamethasone IV 4 mg daily x 2 days, and tube feeds initiated * Currently on sliding scale between weight based stress of 1 and 2. BSGs in higher end of goal yesterday, consider addition of lantus given steroid usage. Will decrease carb ratio for now and continue to monitor. PLAN FOR INPATIENT GLYCEMIC CONTROL: * Bolus insulin * NovoLog per scale ACHS or Q6hrs while NPO * Goal Range: Low 140 mg/dL - High 180 mg/dL * Correction Factor: 20 mg/dL/unit * Nutritional / Prandial insulin per carb ratio of 1 unit per 8 grams CHO consumed * Please note that the plan above was derived based on current level of insulin resistance and hospital stress. These recommendations are appropriate for inpatient admission only. Plan of care upon discharge will need to be reassessed to avoid potential outpatient hypo/hyperglycemia. Thank you.
--- NOTE | 2018-09-27 13:51 | Critical Care Progress Note ---
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 He was transferred to the ICU for intubation and airway protection. Neuro - CAM ICU: POSITIVE Intubated. Sedation: Propofol drip discontinued in setting of bradycardia. Converted to Versed Analgesia: Fentanyl 50-100mcg IV Q2H PRN Cardiac - History of hypertension not on antihypertensives Aspirin held in setting of unknown angioedema Respiratory - Angioedema of unclear origin. History of anaphylaxis to Augmentin Only APPEALS WRITER medication is aspirin. No history of MAGALY treatment. No new medications. Intubated for respiratory support. Famotidine 20 mg every 12 hours Benadryl 50 mg every 8 hours Dexamethasone 4 mg daily Expelling appears improved today, however he still has prominent firmness and swelling in the submental region with tongue swelling noted on exam. With his ETT cuff deflated there is minimal air leak indicating that there is continued laryngeal swelling and he is not yet safe for extubation. Continue to follow. Ludwigs angina was considered in context of his laryngeal swelling without a clear etiology or cause, however he remains without leukocytosis and is relatively nontender. GI - N.p.o. Normosol 100 cc/h IVFM RENAL/LYTES - Sodium, potassium, creatinine, calcium within normal limits today No signs of JALYN Replace lytes as needed. - Ruffin catheter in place ENDO - No history of diabetes Mild hyperglycemia in the setting of steroid use ICU insulin protocol, SSI HEME - Hemoglobin stable, no anemia, no clinical signs of bleeding ID - White blood cell count 9.92, no leukocytosis, afebrile No signs of infection at this time INTEGUMENTARY - Intact, atraumatic. No skin lesions, no acute integumentary process No urticaria with his presentation. See angioedema of the pharynx as noted above LINES/IV ACCESS - PIVs intact. DVT PROPHYLAXIS - Heparin 5000 units every 8 hours DVT prophylaxis Thank you for allowing us to be part of this patient's care. Please refer to Dr. Mcconnell's documentation for any further recommendations. Supervising Physician Co-Signing Physician Notes Dr. Arce was resident physician during care of patient. I separately evaluated patient for rodriguez portions of the history and the exam. I was present during the critical portion of medical decision making, and I discussed the case with the resident. I generally agree with the findings and plan. Patient does not have an elevated white count, he has been afebrile, I believe this is all angioedema secondary to in irritant versus medication. I do not believe this to be secondary to a deep space infection of the oropharynx. Patient's edema has improved however he has very minimal cuff leak with cuff deflated and there was no leak with a PEEP of 30. Gennaro we will evaluate the patient again in another 24 hours. Patient is critically ill due to angioedema. I have personally spent 35 minutes of critical care time in the direct management of this patient. This is a life/limb threatening event. This includes time spent evaluating patient, direct bedside care, chart review, placing orders, interpretation of diagnostic studies, discussion with consultants, patient, and/or family members regarding treatment decisions, as well as other required patient management activities. This time is exclusive of all separately billable procedures, and teaching time and separate from and in addition to any other critical care service time. Subjective Limited by ETT tube. Arouses to verbal stimuli, answers questions with a nod. Indicates that he still mildly short of breath. Denies pain. Review of Systems Review of Systems: Unobtainable due to endotracheal tube Physical Exam Physical Exam: General: Orientation limited by ETT tube. Arouses to voice, indicates answers to questions with a head nod.. Skin: No rash. HEENT: Neck swelling slightly improved today, but area of fullness in the submental region appreciated. Tongue continues to appear swollen/enlarged. Pulm: On vent, converted to assist pressure control. Minimal air leak around ETT when cuff deflated. Symmetrical chest rise. Cardiac: RRR, -mrg. Radial pulses intact and symmetrical. Abdominal: Nontender, nondistended, soft. BS present. Results & Data Vital Signs (Past 12 Hours) Vital Signs Temp Pulse Resp BP Pulse Ox 09/27/18 05:10 58 L 14 96 09/27/18 02:05 62 12 97 09/27/18 02:00 64 116/77 97 09/27/18 01:43 63 09/27/18 01:00 65 115/75 95 09/27/18 00:00 36.6 C 67 122/76 96 09/26/18 23:15 67 12 95 09/26/18 23:00 66 118/74 96 09/26/18 22:00 72 120/76 97 09/26/18 21:00 73 106/74 97 09/26/18 20:01 36.6 C 83 147/89 H 98 09/26/18 19:59 84 146/94 H 98 09/26/18 19:45 72 14 99 09/26/18 19:31 72 09/26/18 19:00 75 99/67 L 99 Resident Activity Tracking Resident Involvement: Resident Care Provided Care Provided: Adult Hospital Medicine (1) Angioedema Encounter type: initial encounter Qualified Code(s): T78.3XXA - Angioneurotic edema, initial encounter
--- NOTE | 2018-09-27 17:22 | Hospitalist Progress Note ---
Date of Service September 27, 2018 Assessment & Plan (1) Anaphylactic reaction: (2) Angioedema: Was intubated for airway protection Continue vent management by the ICU team continue on IV Steroid, IV famotidine and IV benadryl 50mg q8 Continue monitor closely (3) Hypertension: BP elevated Will consider to start on amlodipine if BP remains elevating Continue monitor BP (4) HLD (hyperlipidemia): Diet controlled Had been on statin in past but discontinued after episode of angioedema (5) Sleep apnea: Patient uses CPAP at HS (6) Morbid obesity: BMI 45.6 encourage lifestyle modifications when able (7) DVT prophylaxis: Heparin SQ/SCDS Disposition: Continue monitor in the ICU Subjective Pt was seen and examined Lying in bed intubated with vent support Pt seems to get frustrated because he was unable to communicate because he is intubated He tried to write words down, but was not legible to read He would like to get extubated He denies any chest pain, palpitation, dizziness Physical Exam Physical Exam: General- No acute distress Head- atraumatic Eyes- PERRL, EOMI, ENT- Intubated Neck- supple, no JVD Lungs- clear to auscultation Heart- regular rhythm; no murmur Abdomen- normal bowel sounds, soft, nontender Extremities- no calf tenderness Neuro- alert, oriented x 3; PERRL, follow commands Skin- warm & dry Results & Data Vital Signs (Past 12 Hours) Vital Signs Temp Pulse Resp BP Pulse Ox Pulse Ox 09/27/18 16:00 73 09/27/18 15:00 67 157/96 H 97 09/27/18 14:00 71 140/94 96 09/27/18 13:00 36.7 C 70 164/94 H 97 09/27/18 12:00 36.7 C 70 12 161/96 H 94 09/27/18 11:14 69 100 09/27/18 11:00 72 15 176/94 H 95 09/27/18 10:39 78 2 L 100 09/27/18 10:00 54 L 15 178/96 H 99 09/27/18 09:00 58 L 10 L 133/83 99 09/27/18 08:00 64 14 137/90 98 09/27/18 07:52 66 15 99 09/27/18 07:00 36.5 C 64 13 146/88 H 98
[2018-09-27] MEDS: PEPTAMEN INTENSE VHP 1.0 CAL 1,000 ML BAG OG SCH (18:34)
[2018-09-28] MEDS: INSULIN ASPART 100 UNITS/ML 3 ML PEN SC SCH ×6 (00:30→20:28)
[2018-09-28] MEDS: FAMOTIDINE 20 MG in SYRINGE 3 ML IV SCH ×2 (00:32→12:53)
[2018-09-28] MEDS: MIDAZOLAM HCL 1 MG/ML 2ML VIAL IV PRN ×4 (00:49→20:42)
[2018-09-28 05:09] LABS: Hematocrit (blood only) 36.9 % (42-52); Hemoglobin 12.5 g/dL (14.0-18.0); Immature Granulocytes # (auto) 0.02 K/uL (0.00-0.02); Immature Granulocytes % (auto) 0.2 %; Lymphocytes # (auto) 1.22 K/uL (1.2-3.4); Lymphocytes % (auto) 15.1 %; Mean Corpuscular Hgb Conc 33.9 g/dL (32-36); Mean Corpuscular Volume 79.5 fL (80-100); Mean Platelet Volume 8.8 fL (7.4-10.4); Monocytes # (auto) 0.79 K/uL (0.11-0.59); Monocytes % (auto) 9.8 %; Neutrophils # (auto) 6.05 K/uL (1.4-6.5); Neutrophils % (auto) 74.9 %; Platelet Count 207 K/uL (130-400); RDW Coefficient of Variation 14.1 % (11.5-14.5); RDW Standard Deviation 40.5 fL (36.4-46.3); Red Blood Count 4.64 M/uL (4.7-6.1); White Blood Count 8.08 K/uL (4.8-10.8)
[2018-09-28] MEDS: DiphenhydrAMINE HCL 50 MG/ML VIAL IV SCH ×3 (05:41→22:07)
[2018-09-28] MEDS: HEPARIN SOD 5,000 UNIT/0.5 ML VIAL SQ SCH ×3 (05:41→22:07)
[2018-09-28 05:55] LABS: BUN Creatinine Ratio 27.8 (10-20); Calcium 8.7 mg/dl (8.5-10.1); Creatinine Clr Calc Pharmacy 126.7 ml/min; Est GFR (African American) 112.7; Est GFR (Non-African American) 97.3; Potassium 3.3 mmol/L (3.5-5.1)
[2018-09-28 05:59] LABS: Troponin I 0.033 ng/ml (0-0.045)
[2018-09-28] MEDS: NORMOSOL-R 1,000 ML IV SCH (06:41)
[2018-09-28] MEDS: POTASSIUM CHLORIDE / WTR 10 MEQ/100 ML PLCT IV SCH ×7 (06:45→16:10)
--- NOTE | 2018-09-28 06:55 | XRay Report ---
XR chest 1V portable CLINICAL HISTORY: Respiratory failure COMPARISON STUDY: 09/27/2018 FINDINGS: The heart remains enlarged. There is a nasogastric tube which passes into the stomach. Ther e is an endotracheal tube positioned 20 mm above the leon. There is chronic pleural thickening at t he left lung base. There is slight elevation of the interstitium in an element of mild pulmonary vasc ular congestion cannot be excluded. There is no lobar consolidation. There is minor basilar atelectas is.[ IMPRESSION: 1. Cardiomegaly and equivocal mild pulmonary vascular congestion/fluid overload 2. No evidence of focal pulmonary consolidation Electronically signed by: Uvaldo Mcgee M.D. 09/28/2018 6:54 AM
[2018-09-28 06:57] LABS: Magnesium 2.2 mg/dl (1.8-2.4)
[2018-09-28] MEDS ORDERED: MIDAZOLAM HCL 1 MG/ML 2ML VIAL ONE ×2 (08:17→08:25)
[2018-09-28] MEDS ORDERED: MIDAZOLAM HCL 5 MG/ML 1 ML VIAL IV STA (09:18)
[2018-09-28] MEDS ORDERED: MIDAZOLAM HCL 5 MG/ML VIAL IV STA (09:18)
--- NOTE | 2018-09-28 09:21 | Procedure Note ---
Procedure Note Date of Service September 28, 2018 Procedure Date: Noted above Procedure: Video laryngoscopy Pre-procedure Diagnosis: Angioedema Post-procedure Diagnosis: same as above Attending Staff: Semaj Mcconnell DO Anesthesia: 6 mg Versed, 100 mcg fentanyl The identity of the patient was confirmed and a bedside time out was performed. Description of Procedure: Patient was initially sedated, a 4 glide scope was utilized to visualize the hypopharynx and endotracheal tube. Findings include significant edema of the arytenoids and supraglottic tissues. Complications: None Findings: Supraglottic edema Specimens: Not applicable Estimated blood loss: Zero Coding
--- NOTE | 2018-09-28 09:29 | Critical Care Progress Note ---
Date of Service September 28, 2018 Assessment & Plan (1) Angioedema: Reason Critically Ill: 73-year-old male with angioedema PLAN: Neuro: Sedation and analgesia -Versed and fentanyl IV pushes Resp: Ventilator secondary to intubation for angioedema and acute airway obstruction -Video laryngoscopy demonstrates continued upper airway edema -Will give additional Decadron today keep head of bed elevated 45 degrees CV: Bradycardia -Troponins negative x1 we will check additional troponins and consult cardiology Fluids/Renal: Hypokalemia -K riders ordered Positive fluid balance -Diuretics goal to be negative for 24 hours ID: Afebrile GI/Nutrition: Tolerating tube feeds Heme: Anemia DVT prophylaxis: Heparin 3 times daily Endocrine: ICU hyperglycemia protocol Vascular access: Peripheral IVs Code Status: Full White count not elevated, afebrile, mild improvement in swelling I feel exposure to contrast risks outweighs benefits at this time give additional 24 hours to decrease swelling, 4 mg Decadron x1 global net negative balance and elevate head of bed 45 degrees. Bradycardia: Troponin negative x1, check Lyme, cardiology consult routine I have personally spent 35 minutes of critical care time in the direct management of this patient. This is a life/limb threatening event. This includes time spent evaluating patient, direct bedside care, chart review, placing orders, interpretation of diagnostic studies, discussion with consultants, patient, and/or family members regarding treatment decisions, as well as other required patient management activities. This time is exclusive of all separately billable procedures, and teaching time and separate from and in addition to any other critical care service time. Present on Admission?: Yes (2) Bradycardia: Supervising Physician Co-Signing Physician Notes Patient is critically ill due to angioedema. I have personally spent 35 minutes of critical care time in the direct ma nagement of this patient. This is a life/limb threatening event. This includes time spent evaluating patient, direct bedside care, chart review, placing orders, interpretation of diagnostic studies, discussion with consultants, patient, and/or family members regarding treatment decisions, as well as other required patient management activities. This time is exclusive of all separately billable procedures, and teaching time and separate from and in addition to any other critical care service time. Subjective Denies chest pain, mild discomfort with endotracheal tube Review of Systems Review of Systems: Unobtainable due to endotracheal tube Physical Exam Physical Exam: General: Alert. nontoxic. Skin: Warm, dry, Head: Atraumatic Ears, nose, mouth and throat: Airway obscured by endotracheal tube: See video laryngoscopy report Neck: Decreased submandibular edema thyroid cartilages are palpable Cardiovascular: Normal peripheral perfusion Respiratory: no respiratory distress Gastrointestinal: Non distended Musculoskeletal: No deformity Results & Data Vital Signs (Past 12 Hours) Vital Signs Temp Pulse Resp BP Pulse Ox 09/28/18 08:52 71 14 97 09/28/18 06:55 72 15 96 09/28/18 06:00 37.2 C 70 156/80 H 95 09/28/18 05:00 77 154/95 H 95 09/28/18 04:40 77 18 95 09/28/18 04:00 36.7 C 70 180/88 H 94 09/28/18 03:00 73 166/88 H 94 09/28/18 02:00 76 169/90 H 97 09/28/18 01:41 74 21 99 09/28/18 01:01 77 181/97 H 97 09/28/18 00:00 36.8 C 77 159/89 H 94 09/27/18 23:49 76 09/27/18 23:10 78 19 94 09/27/18 23:00 72 165/85 H 94 09/27/18 22:00 79 172/90 H 95 Laboratory Results 09/28/18 09/28/18 09/28/18 Range/Units 07:56 04:39 04:35 WBC (4.8-10.8) K/uL RBC (4.7-6.1) M/uL Hgb (14.0-18.0) g/dL Hct (42-52) % MCV (80-100) fL MCH (25-34) pg MCHC (32-36) g/dL RDW Std Deviation (36.4-46.3) fL RDW Coeff of Kip (11.5-14.5) % Plt Count (130-400) K/uL MPV (7.4-10.4) fL Immature Gran % (Auto) % Neut % (Auto) % Lymph % (Auto) % [place] % (Auto) % Eos % (Auto) % Baso % (Auto) % Immature Gran # (Auto) (0.00-0.02) K/uL Neut # (Auto) (1.4-6.5) K/uL Lymph # (Auto) (1.2-3.4) K/uL [place] # (Auto) (0.11-0.59) K/uL Eos # (Auto) (0-0.5) K/uL Baso # (Auto) (0-0.2) K/uL Sodium (136-145) mmol/L Potassium (3.5-5.1) mmol/L Chloride (98-107) mmol/L Carbon Dioxide (21-32) mmol/L Anion Gap (3-11) BUN (7-18) mg/dl Creatinine (0.6-1.4) mg/dl Est Cr Clr Drug Dosing ml/min Est GFR ( Amer) Est GFR (Non-Af Amer) BUN/Creatinine Ratio (10-20) Glucose (70-99) mg/dl POC Glucose 88 95 (70-99) Calcium (8.5-10.1) mg/dl Magnesium 2.2 (1.8-2.4) mg/dl Troponin I (0-0.045) ng/ml TSH 2.790 (0.300-4.500) uIu/ml 09/28/18 09/28/18 09/28/18 Range/Units 04:35 04:35 00:28 WBC 8.08 (4.8-10.8) K/uL RBC 4.64 L (4.7-6.1) M/uL Hgb 12.5 L (14.0-18.0) g/dL Hct 36.9 L (42-52) % MCV 79.5 L (80-100) fL MCH 26.9 (25-34) pg MCHC 33.9 (32-36) g/dL RDW Std Deviation 40.5 (36.4-46.3) fL RDW Coeff of Ikp 14.1 (11.5-14.5) % Plt Count 207 (130-400) K/uL MPV 8.8 (7.4-10.4) fL Immature Gran % (Auto) 0.2 % Neut % (Auto) 74.9 % Lymph % (Auto) 15.1 % [place] % (Auto) 9.8 % Eos % (Auto) 0.0 % Baso % (Auto) 0.0 % Immature Gran # (Auto) 0.02 (0.00-0.02) K/uL Neut # (Auto) 6.05 (1.4-6.5) K/uL Lymph # (Auto) 1.22 (1.2-3.4) K/uL [place] # (Auto) 0.79 H (0.11-0.59) K/uL Eos # (Auto) 0.00 (0-0.5) K/uL Baso # (Auto) 0.00 (0-0.2) K/uL Sodium 144 (136-145) mmol/L Potassium 3.3 L (3.5-5.1) mmol/L Chloride 110 H (98-107) mmol/L Carbon Dioxide 28 (21-32) mmol/L Anion Gap 6.0 (3-11) BUN 18 (7-18) mg/dl Creatinine 0.66 (0.6-1.4) mg/dl Est Cr Clr Drug Dosing 126.7 ml/min Est GFR ( Amer) 112.7 Est GFR (Non-Af Amer) 97.3 BUN/Creatinine Ratio 27.8 H (10-20) Glucose 95 (70-99) mg/dl POC Glucose 106 H (70-99) Calcium 8.7 (8.5-10.1) mg/dl Magnesium (1.8-2.4) mg/dl Troponin I 0.033 (0-0.045) ng/ml TSH (0.300-4.500) uIu/ml 09/27/18 09/27/18 09/27/18 Range/Units 20:28 16:15 11:59 WBC (4.8-10.8) K/uL RBC (4.7-6.1) M/uL Hgb (14.0-18.0) g/dL Hct (42-52) % MCV (80-100) fL MCH (25-34) pg MCHC (32-36) g/dL RDW Std Deviation (36.4-46.3) fL RDW Coeff of Kip (11.5-14.5) % Plt Count (130-400) K/uL MPV (7.4-10.4) fL Immature Gran % (Auto) % Neut % (Auto) % Lymph % (Auto) % [place] % (Auto) % Eos % (Auto) % Baso % (Auto) % Immature Gran # (Auto) (0.00-0.02) K/uL Neut # (Auto) (1.4-6.5) K/uL Lymph # (Auto) (1.2-3.4) K/uL [place] # (Auto) (0.11-0.59) K/uL Eos # (Auto) (0-0.5) K/uL Baso # (Auto) (0-0.2) K/uL Sodium (136-145) mmol/L Potassium (3.5-5.1) mmol/L Chloride (98-107) mmol/L Carbon Dioxide (21-32) mmol/L Anion Gap (3-11) BUN (7-18) mg/dl Creatinine (0.6-1.4) mg/dl Est Cr Clr Drug Dosing ml/min Est GFR ( Amer) Est GFR (Non-Af Amer) BUN/Creatinine Ratio (10-20) Glucose (70-99) mg/dl POC Glucose 125 H 137 H 124 H (70-99) Calcium (8.5-10.1) mg/dl Magnesium (1.8-2.4) mg/dl Troponin I (0-0.045) ng/ml TSH (0.300-4.500) uIu/ml (1) Angioedema Encounter type: initial encounter Qualified Code(s): T78.3XXA - Angioneurotic edema, initial encounter
--- NOTE | 2018-09-28 09:31 | Pharmacy Report ---
Pharmacy Glycemic Short Note 2 - Date of Service September 28, 2018 - Glycemic Short BSG Results (Last 24 hours): 09/27/18 09/27/18 09/27/18 11:59 16:15 20:28 Glucose POC Glucose 124 H 137 H 125 H 09/28/18 09/28/18 09/28/18 00:28 04:35 04:39 Glucose 95 POC Glucose 106 H 95 09/28/18 07:56 Glucose POC Glucose 88 OUTPATIENT ANTIDIABETIC REGIMEN: * N/A ASSESSMENT: * Patient remains intubated for airway swelling due to allergic reaction/?extubation today * Patient's BSGs within goal ranging from 153-106 over last 24 hours * Trending downward, 95 this morning, therefore will loosen novolog parameters for tube feeds * Dexamethasone no longer ordered, may be able to remove insulin coverage once patient extubated if BSGs remain at goal PLAN FOR INPATIENT GLYCEMIC CONTROL: * Bolus insulin- loosen * NovoLog per scale ACHS or Q6hrs while NPO * Goal Range: Low 140 mg/dL - High 180 mg/dL * Correction Factor: 20 mg/dL/unit * Nutritional / Prandial insulin per carb ratio of 1 unit per 10 grams CHO consumed
[2018-09-28] MEDS ORDERED: FUROSEMIDE 40 MG/4 ML VIAL IV STA (09:39)
[2018-09-28] MEDS: fentaNYL citrate 100 MCG/2 ML VIAL IV PRN ×2 (09:41→22:17)
[2018-09-28] MEDS ORDERED: DEXAMETHASONE SOD PHOSPHATE 4 MG in SYRINGE 0 ML IV ONE (10:00)
[2018-09-28] MEDS ORDERED: ATROPINE SULFATE 0.1 MG/ML 10ML SYR IV ONE (10:08)
--- NOTE | 2018-09-28 10:22 | Cardiology Consultation ---
Date of Consultation September 28, 2018 Assessment & Plan (1) Sinus pause: Suspect vagally mediated in the setting of angioedema and airway obstruction. Recommend avoiding further treatment with propofol. Pacer pads and atropine to bedside. Continue to monitor in ICU. Avoid AV christopher blocking a gents. Resting 2D transthoracic echocardiogram ordered. (2) Bradycardia: Propofol discontinued. Monitor telemetry. (3) Angioedema: Ventilator management and treatment as per supply assistant service. (4) Anaphylactic reaction: (5) Hypertension: Per review of outpatient records, it appears patient's blood pressure has been uncontrolled over the past 2 years. Lisinopril discontinued due to angioedema. Consider addition of amlodipine 5mg daily. Avoid beta-blockers and other rate limiting agents at this time. History of Present Illness Reason for Consultation: Bradycardia, sinus pauses. Requesting Physician: Dr. Mcconnell Attending Physician: Julio C Davalos MD History of Present Illness 73-year-old patient admitted secondary to lip swelling and angioedema. Patient intubated in the intensive care unit. Monitored over the past 48 hours. Laryngoscopy performed this a.m. however significant edema persist. He is scheduled for a CT scan to assess further. There are no plans for extubation today. At approximately 5:41 this morning, patient developed a 4-second pause. At 8 PM he underwent laryngoscopy without complication. At approximately 9:05 repeat 3.2 second pause followed by a 4-second pause at 9:08, 5-second pause at 9:10, 3.2-second pause at 9:27, and 4.1-second pause at 9:35 AM. Nursing reports significant bradycardia with heart rates into the 20s and 30s while patient was induced with propofol. Propofol was subsequently discontinued. Patient awake and asymptomatic as per discussion with nursing. Remains hypertensive without any evidence of hypotension thus far. Carries a history of hypertension previously treated with lisinopril. Patient unable to give history due to presence of ET tube. Daughter is present at bedside. Reports an isolated syncopal episode occurring in 1997 without recurrence. In general she states, her father denies any lightheadedness, dizziness, syncope or near syncope. Currently the patient is awake and responsive on the ventilator. Allergies Allergy/AdvReac Type Severity Reaction Status Date / Time lisinopril Allergy Severe LIP Verified 01/26/16 17:38 SWELLING,?FROM CPAP OR LISINOPRIL amoxicillin Allergy Intermediate barbara fu Verified 01/23/16 21:05 ing/redness clavulanic acid Allergy Intermediate hives,swell Verified 01/23/16 21:05 ing/redness Penicillins AdvReac Intermediate SHORTNESS Verified 01/24/16 12:02 OF BREATH Cephalosporins AdvReac Unknown KEFLEX-FEVER Verified 01/23/16 20:00 BLISTERS Home Medications Home Medications Medication Instructions Recorded Confirmed Type aspirin [Aspirin Low Dose] 81 mg PO DAILY 09/26/18 09/26/18 History Patient History Medical History HLD (hyperlipidemia) (Chronic) Morbid obesity (Chronic) Sigmoid diverticulosis (Chronic) Hypertension (Chronic) Sleep apnea (Chronic) Drug reaction (Acute) Surgical History H/O colonoscopy (Chronic) " 10/20/2013 internal hemorrhoids, otherwise stable, repeat 5 years " Family History Father AIDS Mother Multiple myeloma Brother Alzheimer disease Other Family history non-contributory Social History Preferred Language: Czech Communication Ability: Vented. Motor Vehicle License Clerk Required: No Beliefs That Will Affect Care: None marital status: / Current Living Situation: Family Other Information That Helps Us Care for You: No Feels Safe at Home: Yes Safety Concerns: Feels Safe At This Time Smoking Status: Former smoker Do You Dip or Chew Tobacco: No Smoking End Date: +40 years Second Hand Exposure: No Tobacco Cessation Education Requested by Patient: No Hx Alcohol Use: No Hx Substance Use: No Review of Systems Review of Systems: Unobtainable due to endotracheal tube Physical Exam Physical Exam: General: NAD, AAO x3, well nourished. Morbid obesity. HEENT: + ETT. Normocephalic. Atraumatic. Conjunctiva pink, no scleral icterus. Neck: No carotid bruits, the carotid upstrokes are brisk. No JVD. No HJR Heart: Regular normal S-1 and S-2 no S-3 or S-4 gallop. No murmurs or rub appreciated. PMI is not displaced. No RV heave. Lungs: Clear bilateral without rales , rhonchi, or wheeze. Abdomen: Normal bowel sounds. Soft. Nontender. No masses or organomegaly. No abdominal bruits. Extremities: No clubbing, cyanosis, or edema. Pulses: radial=2/4, Dorsalis pedis =2/4, posterior tibial=2/4. Neuro: Cranial nerves grossly intact. No focal motor deficit. Results & Data Vital Signs (Past 12 Hours) Vital Signs Temp Pulse Resp BP Pulse Ox 09/28/18 10:00 68 173/89 H 99 09/28/18 09:00 59 L 142/72 H 98 09/28/18 08:52 71 14 97 09/28/18 08:37 92 H 134/88 96 09/28/18 08:00 71 184/93 H 100 09/28/18 07:30 72 174/92 H 95 09/28/18 07:00 36.7 C 78 173/106 H 92 09/28/18 06:55 72 15 96 09/28/18 06:00 37.2 C 70 156/80 H 95 09/28/18 05:00 77 154/95 H 95 09/28/18 04:40 77 18 95 09/28/18 04:00 36.7 C 70 180/88 H 94 09/28/18 03:00 73 166/88 H 94 09/28/18 02:00 76 169/90 H 97 09/28/18 01:41 74 21 99 09/28/18 01:01 77 181/97 H 97 09/28/18 00:00 36.8 C 77 159/89 H 94 09/27/18 23:49 76 09/27/18 23:10 78 19 94 09/27/18 23:00 72 165/85 H 94 Laboratory Results Laboratory Results - last 24 hr 09/27/18 09/27/18 09/27/18 11:59 16:15 20:28 WBC RBC Hgb Hct MCV MCH MCHC RDW Std Deviation RDW Coeff of Kip Plt Count MPV Immature Gran % (Auto) Neut % (Auto) Lymph % (Auto) [place] % (Auto) Eos % (Auto) Baso % (Auto) Immature Gran # (Auto) Neut # (Auto) Lymph # (Auto) [place] # (Auto) Eos # (Auto) Baso # (Auto) Sodium Potassium Chloride Carbon Dioxide Anion Gap BUN Creatinine Est Cr Clr Drug Dosing Est GFR ( Amer) Est GFR (Non-Af Amer) BUN/Creatinine Ratio Glucose POC Glucose 124 H 137 H 125 H Calcium Magnesium Troponin I TSH 09/28/18 09/28/18 09/28/18 00:28 04:35 04:35 WBC 8.08 RBC 4.64 L Hgb 12.5 L Hct 36.9 L MCV 79.5 L MCH 26.9 MCHC 33.9 RDW Std Deviation 40.5 RDW Coeff of Kip 14.1 Plt Count 207 MPV 8.8 Immature Gran % (Auto) 0.2 Neut % (Auto) 74.9 Lymph % (Auto) 15.1 [place] % (Auto) 9.8 Eos % (Auto) 0.0 Baso % (Auto) 0.0 Immature Gran # (Auto) 0.02 Neut # (Auto) 6.05 Lymph # (Auto) 1.22 [place] # (Auto) 0.79 H Eos # (Auto) 0.00 Baso # (Auto) 0.00 Sodium 144 Potassium 3.3 L Chloride 110 H Carbon Dioxide 28 Anion Gap 6.0 BUN 18 Creatinine 0.66 Est Cr Clr Drug Dosing 126.7 Est GFR ( Amer) 112.7 Est GFR (Non-Af Amer) 97.3 BUN/Creatinine Ratio 27.8 H Glucose 95 POC Glucose 106 H Calcium 8.7 Magnesium Troponin I 0.033 TSH 09/28/18 09/28/18 09/28/18 04:35 04:39 07:56 WBC RBC Hgb Hct MCV MCH MCHC RDW Std Deviation RDW Coeff of Kip Plt Count MPV Immature Gran % (Auto) Neut % (Auto) Lymph % (Auto) [place] % (Auto) Eos % (Auto) Baso % (Auto) Immature Gran # (Auto) Neut # (Auto) Lymph # (Auto) [place] # (Auto) Eos # (Auto) Baso # (Auto) Sodium Potassium Chloride Carbon Dioxide Anion Gap BUN Creatinine Est Cr Clr Drug Dosing Est GFR ( Amer) Est GFR (Non-Af Amer) BUN/Creatinine Ratio Glucose POC Glucose 95 88 Calcium Magnesium 2.2 Troponin I TSH 2.790 (1) Angioedema Encounter type: initial encounter Qualified Code(s): T78.3XXA - Angioneurotic edema, initial encounter (2) Hypertension Hypertension type: essential hypertension Qualified Code(s): I10 - Essential (primary) hypertension
[2018-09-28 11:37] LABS: Lyme Ab IgM w/WB Rflx Negative (Negative)
[2018-09-28] MEDS ORDERED: PERFLUTREN LIPID MICROSPHERE (DEFINITY) IV ONE (12:00)
[2018-09-28 12:24] LABS: Lyme Ab IgG w/WB Rflx Negative (Negative)
[2018-09-28] MEDS: PEPTAMEN INTENSE VHP 1.0 CAL 1,000 ML BAG OG SCH (14:02)
--- NOTE | 2018-09-28 14:11 | Hospitalist Progress Note ---
Date of Service September 28, 2018 Assessment & Plan (1) Anaphylactic reaction: (2) Angioedema: Intubated for airway protection due to airway obstruction Continue vent management by the ICU team Laryngoscopy done today by Dr. Mcconnell showed supraglottic edema continue on IV Steroid, IV famotidine and IV benadryl 50mg q8 Continue monitor closely Might consider to get a CT soft tissue neck before extubating to eval the edema (3) Bradycardia: HR dropped in the 20's and 30's Propofol has been discontinued Cardiology on board and recommended to avoid AV christopher meds Pacer pad placed and Atropine at bedside Echo pending Continue monitor closely (4) Hypertension: BP elevated Will start on amlodipine 5 mg daily if BP continues to elevate Continue monitor BP (5) HLD (hyperlipidemia): Diet controlled Had been on statin in past but discontinued after episode of angioedema (6) Sleep apnea: Patient uses CPAP at HS (7) Morbid obesity: BMI 45.6 encourage lifestyle modifications when able (8) DVT prophylaxis: Heparin SQ/SCDS Disposition: Continue monitor in the ICU Subjective Pt was seen and examined Lying in bed intubated on vent support with daughter at bedside Pt is awake and able to follow command He had laryngoscopy done today that showed supraglottic edema Denies any chest pain, palpitation Physical Exam Physical Exam: General- No acute distress Head- atraumatic Eyes- PERRL, EOMI, ENT- Intubated Neck- supple, no JVD Lungs- clear to auscultation Heart- regular rhythm; no murmur Abdomen- normal bowel sounds, soft, nontender Extremities- no calf tenderness Neuro- alert, oriented x 3; PERRL, follow commands Skin- warm & dry Results & Data Vital Signs (Past 12 Hours) Vital Signs Temp Pulse Resp BP Pulse Ox 09/28/18 13:27 77 14 98 09/28/18 11:02 75 14 99 09/28/18 11:00 73 169/85 H 97 09/28/18 10:00 68 173/89 H 99 09/28/18 09:00 59 L 142/72 H 98 09/28/18 08:52 71 14 97 09/28/18 08:37 92 H 134/88 96 09/28/18 08:00 71 184/93 H 100 09/28/18 07:30 72 174/92 H 95 09/28/18 07:00 36.7 C 78 173/106 H 92 09/28/18 06:55 72 15 96 09/28/18 06:00 37.2 C 70 156/80 H 95 09/28/18 05:00 77 154/95 H 95 09/28/18 04:40 77 18 95 09/28/18 04:00 36.7 C 70 180/88 H 94 09/28/18 03:00 73 166/88 H 94 (1) Hypertension Hypertension type: essential hypertension Qualified Code(s): I10 - Essential (primary) hypertension
[2018-09-29] MEDS: FAMOTIDINE 20 MG in SYRINGE 3 ML IV SCH ×3 (00:30→23:29)
[2018-09-29] MEDS: INSULIN ASPART 100 UNITS/ML 3 ML PEN SC SCH ×6 (00:37→20:30)
[2018-09-29] MEDS: MIDAZOLAM HCL 1 MG/ML 2ML VIAL IV PRN ×2 (04:19→08:04)
[2018-09-29 04:26] LABS: Basophils # (auto) 0.01 K/uL (0-0.2); Basophils % (auto) 0.1 %; Hematocrit (blood only) 38.8 % (42-52); Hemoglobin 13.3 g/dL (14.0-18.0); Immature Granulocytes # (auto) 0.04 K/uL (0.00-0.02); Immature Granulocytes % (auto) 0.5 %; Lymphocytes # (auto) 1.42 K/uL (1.2-3.4); Mean Corpuscular Hgb Conc 34.3 g/dL (32-36); Mean Corpuscular Volume 80.3 fL (80-100); Mean Platelet Volume 8.6 fL (7.4-10.4); Monocytes # (auto) 1.03 K/uL (0.11-0.59); Neutrophils # (auto) 5.41 K/uL (1.4-6.5); Neutrophils % (auto) 68.4 %; Platelet Count 213 K/uL (130-400); RDW Coefficient of Variation 14.1 % (11.5-14.5); RDW Standard Deviation 41.2 fL (36.4-46.3); Red Blood Count 4.83 M/uL (4.7-6.1); White Blood Count 7.91 K/uL (4.8-10.8)
[2018-09-29 04:40] LABS: BUN Creatinine Ratio 35.2 (10-20); Calcium 8.9 mg/dl (8.5-10.1); Creatinine Clr Calc Pharmacy 136.6 ml/min; Est GFR (African American) 115.7; Est GFR (Non-African American) 99.8; Potassium 3.4 mmol/L (3.5-5.1)
[2018-09-29] MEDS: DiphenhydrAMINE HCL 50 MG/ML VIAL IV SCH ×3 (06:18→23:29)
[2018-09-29] MEDS: HEPARIN SOD 5,000 UNIT/0.5 ML VIAL SQ SCH ×3 (06:18→23:29)
[2018-09-29] MEDS: fentaNYL citrate 100 MCG/2 ML VIAL IV PRN (08:05)
[2018-09-29] MEDS: PEPTAMEN INTENSE VHP 1.0 CAL 1,000 ML BAG OG SCH (08:16)
[2018-09-29] MEDS: methylPREDNISolone 40 MG in SYRINGE 0 ML IV SCH ×3 (10:17→23:30)
--- NOTE | 2018-09-29 11:39 | Pharmacy Report ---
Pharmacy Glycemic Short Note 2 - Date of Service September 29, 2018 - Glycemic Short BSG Results (Last 24 hours): 09/28/18 09/28/18 09/28/18 11:57 15:59 20:24 Glucose POC Glucose 93 124 H 111 H 09/29/18 09/29/18 09/29/18 00:35 03:58 04:03 Glucose 97 POC Glucose 111 H 97 09/29/18 08:10 Glucose POC Glucose 80 OUTPATIENT ANTIDIABETIC REGIMEN: * N/A * A1c - 5.7% 09/27/18 ASSESSMENT: 09/29 * Patient has been extubated, tube feedings have been stopped * However patient will be starting high dose IV solu-medrol today * Given the high doses of steroids he will receive now, and the possibility of PO intake soon will continue the current Novolog order for carb coverage and correction. He is "pre-diabetic" per A1c * Will add a pending order for Lantus to be started if BSGs climb quickly today 09/28 * Patient remains intubated for airway swelling due to allergic reaction/?extubation today * Patient's BSGs within goal ranging from 153-106 over last 24 hours * Trending downward, 95 this morning, therefore will loosen novolog parameters for tube feeds * Dexamethasone no longer ordered, may be able to remove insulin coverage once patient extubated if BSGs remain at goal PLAN FOR INPATIENT GLYCEMIC CONTROL: * Basal insulin: * if HS BSG above 160: Lantus 12 units SQ x 1 * Bolus insulin (no change) * NovoLog per scale Q 4 hrs initially * Goal Range: Low 120 mg/dL - High 150 mg/dL * Correction Factor: 20 mg/dL/unit * Nutritional / Prandial insulin per carb ratio of 1 unit per 10 grams CHO consumed
--- NOTE | 2018-09-29 12:30 | Cardiology Progress Note ---
Date of Service September 29, 2018 Assessment & Plan (1) Sinus pause: Suspect vagally mediated in the setting of angioedema and airway obstruction. Recommend avoiding further treatment with propofol. Pacer pads and atropine to bedside. Continue to monitor in ICU. Avoid AV christopher blocking agents. Resting 2D transthoracic echocardiogram demonstrates preserved left ventricular systolic function. (2) Hypertension: Per review of outpatient records, it appears patient's blood pressure has been uncontrolled over the past 2 years. Lisinopril discontinued due to angioedema. Blood pressure currently elevated in the setting of acute angioedema and treatment with corticosteroids. Add amlodipine 5 mg daily. Consider addition of low-dose diuretic therapy pending clinical response. Avoid beta-blockers and other rate limiting agents at this time. (3) Bradycardia: Treatment as above. Monitor telemetry. (4) Angioedema: Successfully extubated today. Continue diphenhydramine and Solu-Medrol as per critical care recommendations. (5) Anaphylactic reaction: Subjective Patient seen and examined at the bedside. Extubated earlier this morning. Awake and alert. No recurrent bradycardia or sinus pauses on telemetry overnight. Feeling well from a cardiovascular perspective. Blood pressure remains elevated. Lisinopril discontinued in the past due to angioedema. Family present at bedside. Review of Systems Review of Systems: All systems reviewed & are unremarkable except as noted in HPI & below Physical Exam Physical Exam: General: NAD, AAO x3, well nourished. Morbid obesity. HEENT: Normocephalic. Atraumatic. Conjunctiva pink, no scleral icterus. Neck: No carotid bruits, the carotid upstrokes are brisk. No JVD. No HJR Heart: Regular normal S-1 and S-2 no S-3 or S-4 gallop. No murmurs or rub appreciated. PMI is not displaced. No RV heave. Lungs: Clear bilateral without rales , rhonchi, or wheeze. Abdomen: Normal bowel sounds. Soft. Nontender. No masses or organomegaly. No abdominal bruits. Extremities: No clubbing, cyanosis, or edema. Pulses: radial=2/4, Dorsalis pedis =2/4, posterior tibial=2/4. Neuro: Cranial nerves grossly intact. No focal motor deficit. Results & Data Vital Signs (Past 12 Hours) Vital Signs Temp Pulse Resp BP Pulse Ox Pulse Ox 09/29/18 10:12 69 18 96 09/29/18 09:01 69 172/110 H 96 09/29/18 08:01 37.4 C 73 178/97 H 97 09/29/18 08:00 97 09/29/18 07:32 69 16 98 09/29/18 07:01 79 162/102 H 97 09/29/18 06:00 72 163/101 H 98 09/29/18 05:00 69 175/94 H 98 09/29/18 04:40 72 14 97 09/29/18 04:00 67 169/91 H 98 09/29/18 03:15 70 12 97 09/29/18 03:00 71 172/90 H 97 09/29/18 02:01 70 159/90 H 97 09/29/18 01:00 71 155/85 H 97 Laboratory Results Laboratory Results - last 24 hr 09/28/18 09/28/18 09/28/18 15:59 16:16 20:24 WBC RBC Hgb Hct MCV MCH MCHC RDW Std Deviation RDW Coeff of Kip Plt Count MPV Immature Gran % (Auto) Neut % (Auto) Lymph % (Auto) Knox % (Auto) Eos % (Auto) Baso % (Auto) Immature Gran # (Auto) Neut # (Auto) Lymph # (Auto) Knox # (Auto) Eos # (Auto) Baso # (Auto) Sodium Potassium Chloride Carbon Dioxide Anion Gap BUN Creatinine Est Cr Clr Drug Dosing Est GFR ( Amer) Est GFR (Non-Af Amer) BUN/Creatinine Ratio Glucose POC Glucose 124 H 111 H Calcium Troponin I < 0.015 09/29/18 09/29/18 09/29/18 00:35 03:58 03:58 WBC 7.91 RBC 4.83 Hgb 13.3 L Hct 38.8 L MCV 80.3 MCH 27.5 MCHC 34.3 RDW Std Deviation 41.2 RDW Coeff of Kip 14.1 Plt Count 213 MPV 8.6 Immature Gran % (Auto) 0.5 Neut % (Auto) 68.4 Lymph % (Auto) 18.0 Knox % (Auto) 13.0 Eos % (Auto) 0.0 Baso % (Auto) 0.1 Immature Gran # (Auto) 0.04 H Neut # (Auto) 5.41 Lymph # (Auto) 1.42 Knox # (Auto) 1.03 H Eos # (Auto) 0.00 Baso # (Auto) 0.01 Sodium 138 Potassium 3.4 L Chloride 104 Carbon Dioxide 28 Anion Gap 6.0 BUN 22 H Creatinine 0.62 Est Cr Clr Drug Dosing 136.6 Est GFR ( Amer) 115.7 Est GFR (Non-Af Amer) 99.8 BUN/Creatinine Ratio 35.2 H Glucose 97 POC Glucose 111 H Calcium 8.9 Troponin I 09/29/18 09/29/18 04:03 08:10 WBC RBC Hgb Hct MCV MCH MCHC RDW Std Deviation RDW Coeff of Kip Plt Count MPV Immature Gran % (Auto) Neut % (Auto) Lymph % (Auto) Knox % (Auto) Eos % (Auto) Baso % (Auto) Immature Gran # (Auto) Neut # (Auto) Lymph # (Auto) Knox # (Auto) Eos # (Auto) Baso # (Auto) Sodium Potassium Chloride Carbon Dioxide Anion Gap BUN Creatinine Est Cr Clr Drug Dosing Est GFR ( Amer) Est GFR (Non-Af Amer) BUN/Creatinine Ratio Glucose POC Glucose 97 80 Calcium Troponin I (1) Angioedema Encounter type: initial encounter Qualified Code(s): T78.3XXA - Angioneurotic edema, initial encounter (2) Hypertension Hypertension type: essential hypertension Qualified Code(s): I10 - Essential (primary) hypertension
--- NOTE | 2018-09-29 12:52 | Critical Care Progress Note ---
Date of Service September 29, 2018 Assessment & Plan (1) Angioedema: Impression: 1. Recurrent angioedema, etiology is unknown, was in the past related to MAGALY inhibitors. He is not on it at this time. 2. Acute respiratory failure secondary to above. 3. History of hypertension. 4. Sinus pause noted on the monitoring. The patient is currently off beta- meme. Plan: 1. We will proceed with extubation, the patient passed the leak test. 2. Blood pressure control, I appreciate Dr. Khan input. 3. Start the patient on systemic steroids as well as H2 blockers. 4. Once the patient is able to pass a swallow eval, I will start him on oral medications and oral intake. 5. Continue DVT prophylaxis. 6. Core measures for ICU stay. 7. Glucose control. 8. Discussed with the staff on rounds and details. 9. Discussed with the daughter at the bedside in details, all her questions bee n answered. 10. Critical care time spent with the patient was 35 minutes. Subjective The patient was admitted to the hospital for recurrent upper airway edema requiring intubation, the patient is currently vented, is following commands and answering questions properly, significant air leak was noted around the ET tube after deflation of the cuff. Able to phonate with cuff deflation. Denies any pain, review of system is limited. Review of Systems Review of Systems: Review of system is limited due to the patient being intubated. Physical Exam Physical Exam: Vital signs are stable except for slightly elevated blood pressure, no neck edema, minimal tongue swelling, good air leak from around the ET tube, positive air movement, no stridor, S1-S2 regular rate and rhythm, lungs with distant breath sounds, abdomen is benign but obese, edema in the periphery is minimal, neurologically he is nonfocal. No skin rash. No oral mucosal lesion. Results & Data Vital Signs (Past 12 Hours) Vital Signs Temp Pulse Resp BP Pulse Ox Pulse Ox 09/29/18 10:12 69 18 96 09/29/18 09:01 69 172/110 H 96 09/29/18 08:01 37.4 C 73 178/97 H 97 09/29/18 08:00 97 09/29/18 07:32 69 16 98 09/29/18 07:01 79 162/102 H 97 09/29/18 06:00 72 163/101 H 98 09/29/18 05:00 69 175/94 H 98 09/29/18 04:40 72 14 97 09/29/18 04:00 67 169/91 H 98 09/29/18 03:15 70 12 97 09/29/18 03:00 71 172/90 H 97 09/29/18 02:01 70 159/90 H 97 09/29/18 01:00 71 155/85 H 97 Laboratory Results Labs were reviewed personally which showed normal WBC, and BMP is acceptable. Diagnostic Findings I reviewed his imaging including chest x-ray which showed no parenchymal disease. (1) Angioedema Encounter type: initial encounter Qualified Code(s): T78.3XXA - Angioneurotic edema, initial encounter
--- NOTE | 2018-09-29 17:00 | Hospitalist Progress Note ---
Date of Service September 29, 2018 Assessment & Plan (1) Anaphylactic reaction: (2) Angioedema: Was Intubated for airway protection due to airway obstruction Laryngoscopy done on 09/[address] Mcconnell showed supraglottic edema S/P extubated today and tolerated well continue on IV Steroid, IV famotidine and IV benadryl 50mg q8 Continue monitor closely Continue oxygen supplement for now (3) Bradycardia: HR dropped in the 20's and 30's Propofol has been discontinued Cardiology on board and recommended to avoid AV christopher meds Pacer pad placed and Atropine at bedside ECHO on 09/28 showed normal LV systolic function with EF 55-60% Continue monitor closely (4) Hypertension: BP has been fluctuated Will start on amlodipine 5 mg daily once able to take oral med Continue monitor BP (5) HLD (hyperlipidemia): Diet controlled Had been on statin in past but discontinued after episode of angioedema (6) Sleep apnea: Patient uses CPAP at HS (7) Morbid obesity: BMI 45.6 encourage lifestyle modifications when able (8) DVT prophylaxis: Heparin SQ/SCDS Disposition: Continue monitor in the ICU Subjective Pt was seen and examined Lying in bed with no distress Pt was extubated this morning He said that he feels fine Denies any chest pain, palpitation, dizziness and SOB Physical Exam Physical Exam: General- No acute distress Head- atraumatic Eyes- PERRL, EOMI, ENT- Intubated Neck- supple, no JVD Lungs- Diminished BS Heart- regular rhythm; no murmur Abdomen- normal bowel sounds, soft, nontender Extremities- no calf tenderness Neuro- alert, oriented x 3; PERRL, follow commands Skin- warm & dry Results & Data Vital Signs (Past 12 Hours) Vital Signs Temp Pulse Resp BP Pulse Ox Pulse Ox 09/29/18 16:01 36.8 C 85 16 135/79 95 09/29/18 15:01 85 23 150/92 H 98 09/29/18 14:01 82 22 138/85 97 09/29/18 13:16 36.9 C 09/29/18 13:00 81 20 148/90 H 97 09/29/18 12:01 82 29 H 189/123 H 98 09/29/18 12:00 93 H 23 100 09/29/18 11:18 79 25 H 176/117 H 09/29/18 11:01 80 24 198/144 H 97 09/29/18 10:12 69 18 96 09/29/18 10:09 75 200/112 H 98 09/29/18 10:01 71 192/130 H 99 09/29/18 10:00 73 98 09/29/18 09:02 68 96 09/29/18 09:01 69 172/110 H 96 09/29/18 08:01 37.4 C 73 178/97 H 97 09/29/18 08:00 97 09/29/18 07:32 69 16 98 09/29/18 07:01 79 162/102 H 97 09/29/18 06:00 72 163/101 H 98 09/29/18 05:00 69 175/94 H 98 (1) Hypertension Hypertension type: essential hypertension Qualified Code(s): I10 - Essential (primary) hypertension
[2018-09-29] MEDS: LANTUS PER UNIT CHARGE SQ SCH (20:28)
[2018-09-29] MEDS ORDERED: GUAIFENESIN/CODEINE 100MG/10MG 5ML UDC PO PRN (20:44)
[2018-09-30] MEDS: INSULIN ASPART 100 UNITS/ML 3 ML PEN SC SCH ×6 (00:03→19:51)
[2018-09-30] MEDS: methylPREDNISolone 40 MG in SYRINGE 0 ML IV SCH (05:04)
[2018-09-30] MEDS: DiphenhydrAMINE HCL 50 MG/ML VIAL IV SCH ×2 (05:11→13:57)
[2018-09-30] MEDS: HEPARIN SOD 5,000 UNIT/0.5 ML VIAL SQ SCH ×3 (05:11→21:30)
[2018-09-30 08:34] LABS: BUN Creatinine Ratio 28.7 (10-20); Calcium 9.1 mg/dl (8.5-10.1); Creatinine Clr Calc Pharmacy 102.6 ml/min; Est GFR (African American) 103.6; Est GFR (Non-African American) 89.4; Potassium 3.9 mmol/L (3.5-5.1)
--- NOTE | 2018-09-30 09:59 | Cardiology Progress Note ---
Date of Service September 30, 2018 Assessment & Plan (1) Sinus pause: Suspect vagally mediated in the setting of angioedema and airway obstruction. No recurrent status post extubation. Recommend avoiding further treatment with propofol. Pacer pads and atropine to bedside. Patient may be transferred to PCU from a cardiovascular perspective. Avoid AV christopher blocking agents. Resting 2D transthoracic echocardiogram demonstrates preserved left ventricular systolic function. (2) Bradycardia: Treatment as above. Monitor telemetry. (3) Angioedema: Successfully extubated 09/29/18. Continue diphenhydramine and Solu-Medrol as per critical care recommendations. (4) Anaphylactic reaction: (5) Hypertension: Improved with addition of amlodipine. Consider addition of low-dose diuretic therapy pending clinical. Avoid beta-blockers and other rate limiting agents at this time. Subjective Patient seen and examined the bedside. Feeling well from a cardiovascular perspective. Denies chest pain or shortness of breath. Tolerating diet medications. No recurrent stridor. Blood pressure improved with addition of am lodipine. Offers no concerns/complaints at this time. Review of Systems Review of Systems: All systems reviewed & are unremarkable except as noted in HPI & below Physical Exam Physical Exam: General: NAD, AAO x3, well nourished. obese. HEENT: Normocephalic. Atraumatic. Conjunctiva pink, no scleral icterus. Neck: No carotid bruits, the carotid upstrokes are brisk. No JVD. No HJR Heart: Regular normal S-1 and S-2 no S-3 or S-4 gallop. No murmurs or rub appreciated. PMI is not displaced. No RV heave. Lungs: Clear bilateral without rales , rhonchi, or wheeze. Abdomen: Normal bowel sounds. Soft. Nontender. No masses or organomega ly. No abdominal bruits. Extremities: No clubbing, cyanosis, or edema. Pulses: radial=2/4, posterior tibial=2/4. Neuro: Cranial nerves grossly intact. No focal motor deficit. Results & Data Vital Signs (Past 12 Hours) Vital Signs Temp Pulse Resp BP Pulse Ox 09/30/18 08:01 36.5 C 84 20 150/87 H 92 09/30/18 08:00 80 20 98 09/30/18 07:01 78 16 156/90 H 94 05/14/19 07:00 76 17 95 09/30/18 06:01 72 18 146/101 H 96 09/30/18 04:01 36.8 C 78 13 154/104 H 96 09/30/18 03:35 82 14 95 09/30/18 01:01 73 15 141/93 H 94 09/30/18 00:01 76 17 133/86 94 09/29/18 23:01 84 17 157/101 H 95 09/29/18 22:14 80 20 85 L 09/29/18 22:01 86 23 136/97 96 Laboratory Results Laboratory Results - last 24 hr 09/29/18 09/29/18 09/29/18 12:53 15:16 20:19 Sodium Potassium Chloride Carbon Dioxide Anion Gap BUN Creatinine Est Cr Clr Drug Dosing Est GFR ( Amer) Est GFR (Non-Af Amer) BUN/Creatinine Ratio Glucose POC Glucose 104 H 147 H 158 H Calcium 09/29/18 09/30/18 09/30/18 23:32 05:06 07:30 Sodium Potassium Chloride Carbon Dioxide Anion Gap BUN Creatinine Est Cr Clr Drug Dosing Est GFR ( Amer) Est GFR (Non-Af Amer) BUN/Creatinine Ratio Glucose POC Glucose 141 H 126 H 138 H Calcium 09/30/18 07:54 Sodium 141 Potassium 3.9 Chloride 103 Carbon Dioxide 32 Anion Gap 6.0 BUN 23 H Creatinine 0.81 Est Cr Clr Drug Dosing 102.6 Est GFR ( Amer) 103.6 Est GFR (Non-Af Amer) 89.4 BUN/Creatinine Ratio 28.7 H Glucose 140 H POC Glucose Calcium 9.1 (1) Angioedema Encounter type: initial encounter Qualified Code(s): T78.3XXA - Angioneurotic edema, initial encounter (2) Hypertension Hypertension type: essential hypertension Qualified Code(s): I10 - Essential (primary) hypertension
[2018-09-30] MEDS: CETIRIZINE HCL 10 MG TABLET PO SCH (10:51)
[2018-09-30] MEDS: predniSONE 20 MG TAB PO SCH (10:51)
[2018-09-30] MEDS: FAMOTIDINE 20 MG TAB PO SCH ×2 (10:52→21:30)
--- NOTE | 2018-09-30 11:42 | Pharmacy Report ---
Pharmacy Glycemic Short Note 2 - Date of Service September 30, 2018 - Glycemic Short BSG Results (Last 24 hours): 09/29/18 09/29/18 09/29/18 12:53 15:16 20:19 Glucose POC Glucose 104 H 147 H 158 H 09/29/18 09/30/18 09/30/18 23:32 05:06 07:30 Glucose POC Glucose 141 H 126 H 138 H 09/30/18 07:54 Glucose 140 H POC Glucose OUTPATIENT ANTIDIABETIC REGIMEN: * N/A * A1c - 5.7% 09/27/18 ASSESSMENT: 09/30 * BSGs well controlled over the last 24 hrs * Only 1 unit of insulin administered yesterday * Patient did eat some breakfast today; little to no carbs consumed yesterday. Will follow post-prandial BSG trend today to guide Novolog adjustments * Fasting BSG 140 this AM, at upper end of goal with no basal insulin on board 09/29 * Patient has been extubated, tube feedings have been stopped * However patient will be starting high dose IV solu-medrol today * Given the high doses of steroids he will receive now, and the possibility of PO intake soon will continue the current Novolog order for carb coverage and correction. He is "pre-diabetic" per A1c * Will add a pending order for Lantus to be started if BSGs climb quickly today 09/28 * Patient remains intubated for airway swelling due to allergic reaction/?extubation today * Patient's BSGs within goal ranging from 153-106 over last 24 hours * Trending downward, 95 this morning, therefore will loosen novolog parameters for tube feeds * Dexamethasone no longer ordered, may be able to remove insulin coverage once patient extubated if BSGs remain at goal PLAN FOR INPATIENT GLYCEMIC CONTROL: * Basal insulin: (no change) * if HS BSG above 160: Lantus 12 units SQ x 1 * Bolus insulin (no change) * NovoLog per scale Q 4 hrs for 24 hrs more now that diet advancing * Goal Range: Low 120 mg/dL - High 150 mg/dL * Correction Factor: 20 mg/dL/unit * Nutritional / Prandial insulin per carb ratio of 1 unit per 10 grams CHO consumed
--- NOTE | 2018-09-30 13:23 | Critical Care Progress Note ---
Date of Service September 30, 2018 Assessment & Plan (1) Angioedema: Impression: 1. Recurrent angioedema, etiology is unknown, was in the past related to MAGALY inhibitors. He is not on it at this time. 2. Acute respiratory failure secondary to above. 3. History of hypertension. 4. Sinus pause noted on the monitoring. The patient is currently off beta- meme. Plan: 1. Remains extubated. Continue with home CPAP at night. 2. Blood pressure control, I appreciate Dr. Khan input. 3. Continue prednisone 40 mg daily to complete total of 1 week. 4. Start the patient on Zyrtec 10 mg p.o. daily for 14 days in addition to Pepcid 20 mg p.o. twice daily for 14 days. 5. Continue DVT prophylaxis. 6. Core measures for ICU stay. 7. Glucose control. 8. Discussed with the staff on rounds and details. 9. Discontinue fentanyl. 10. Disposition plan discussed with Dr. Davalos. Appreciate his acceptance of the case to the regular floor. 11. We will change the medications to p.o. Thank you, will sign off from critical care standpoint. Subjective The patient is feeling better, however he still feels some swelling on his cheeks on the right side according to him. He was able to tolerate oral intake, no dysphonia, remains extubated, currently he is on room air. He tolerated his CPAP overnight. No events overnight otherwise. Review of Systems Review of Systems: No shortness of breath, no dysphonia, denies any chest pain, no abdominal pain, no cough no sputum production. No change in bowel movements no change in urine habits. No skin rash or oral thrush. No visual disturbances. Neurologically is intact. Physical Exam Physical Exam: Vital signs are stable, S1-S2 regular rate and rhythm, lungs are clear, I did not appreciate palpable masses or swelling in the neck area, oral mucosa is normal, no tenderness in the neck area, abdomen is obese but benign, no edema in the periphery. Neurologically is nonfocal. No rash. Results & Data Vital Signs (Past 12 Hours) Vital Signs Temp Pulse Resp BP Pulse Ox 09/30/18 08:01 36.5 C 84 20 150/87 H 92 09/30/18 08:00 80 20 98 09/30/18 07:01 78 16 156/90 H 94 09/30/18 07:00 76 17 95 05/14/19 06:01 72 18 146/101 H 96 09/30/18 04:01 36.8 C 78 13 154/104 H 96 09/30/18 03:35 82 14 95 Laboratory Results Labs showed stable BMP, Diagnostic Findings No new imaging. (1) Angioedema Encounter type: initial encounter Qualified Code(s): T78.3XXA - Angioneurotic edema, initial encounter
--- NOTE | 2018-09-30 19:27 | Hospitalist Progress Note ---
Date of Service September 30, 2018 Assessment & Plan (1) Anaphylactic reaction: (2) Angioedema: Was Intubated for airway protection due to airway obstruction Laryngoscopy done on 09/[address] Mcconnell showed supraglottic edema S/P extubated on 09/29 On IV Steroid, IV famotidine and IV benadryl 50mg q8 Will change IV solumedrol to prednisone 40mg x7days Discontinued IV Benadryl and steroid due to confusion Will start on Zyrtec 10 mg p.o. daily for 14 days in addition to Pepcid 20 mg p.o. twice daily for 14 days. Continue monitor closely Saturated on RA Clinically stable (3) Bradycardia: HR dropped in the 20's and 30's Propofol has been discontinued Cardiology on board and recommended to avoid AV christopher meds Pacer pad placed and Atropine at bedside ECHO on 09/28 showed normal LV systolic function with EF 55-60% HR stable Continue monitor closely (4) Hypertension: BP has been fluctuated Continue amlodipine 5 mg daily Continue monitor BP (5) Confusion: Possible related to steroid and benadryl IV No focal neuro deficit on exam Case discussed with spreader operator automatic who also examined pt Will change benadryl to Zyrtec and IV solumedrol to prednisone If develops any focal deficit, will consider get a CT head Continue monitor (6) HLD (hyperlipidemia): Diet controlled Statin resumed (7) Sleep apnea: Patient uses CPAP at HS (8) Morbid obesity: BMI 45.6 encourage lifestyle modifications when able (9) DVT prophylaxis: Heparin SQ/SCDS Disposition: Transfer to tele Possible discharge tomorrow Subjective Pt was seen and examined Sitting in bed with no distress Pt said that he feels fine His saturated on RA with no distress He seems a little confused now he was able to answer the year, month, president (current and previous) correctly For the place he said that he was in the [facility] campus Denies any chest pain, palpitation, dizziness and SOB Physical Exam Physical Exam: General- No acute distress Head- atraumatic Eyes- PERRL, EOMI, ENT- Intubated Neck- supple, no JVD Lungs- Diminished BS Heart- regular rhythm; no murmur Abdomen- normal bowel sounds, soft, nontender Extremities- no calf tenderness Neuro- alert, oriented, PERRL, EOMI, follow commands, normal strength Skin- warm & dry Results & Data Vital Signs (Past 12 Hours) Vital Signs Temp Pulse Pulse Resp BP BP Pulse Ox 09/30/18 18:01 87 19 150/90 H 93 09/30/18 16:00 84 16 149/98 H 94 09/30/18 15:45 85 09/30/18 15:25 36.8 C 85 16 135/90 93 09/30/18 13:01 93 H 22 147/98 H 97 09/30/18 13:00 84 17 94 09/30/18 12:01 87 18 127/85 98 09/30/18 12:00 86 19 96 09/30/18 11:01 86 15 142/89 H 96 09/30/18 11:00 88 17 95 09/30/18 10:01 90 14 131/82 94 09/30/18 10:00 79 24 95 09/30/18 09:01 87 15 149/81 H 95 09/30/18 09:00 89 19 95 09/30/18 08:02 84 15 98 09/30/18 08:01 36.5 C 84 20 150/87 H 92 09/30/18 08:00 80 20 98 (1) Hypertension Hypertension type: essential hypertension Qualified Code(s): I10 - Essential (primary) hypertension
[2018-09-30] MEDS: LANTUS PER UNIT CHARGE SQ SCH (19:52)
[2018-10-01] MEDS: INSULIN ASPART 100 UNITS/ML 3 ML PEN SC SCH ×6 (00:10→21:01)
[2018-10-01] MEDS: HEPARIN SOD 5,000 UNIT/0.5 ML VIAL SQ SCH ×3 (05:46→21:01)
[2018-10-01] MEDS ORDERED: COUGH DROP (SUGAR FREE) LOZ 24 LOZ/1 BOX BUCCAL ONE (05:51)
[2018-10-01] MEDS: CETIRIZINE HCL 10 MG TABLET PO SCH (08:37)
[2018-10-01] MEDS: FAMOTIDINE 20 MG TAB PO SCH ×2 (08:37→21:01)
[2018-10-01] MEDS: predniSONE 20 MG TAB PO SCH (08:37)
--- NOTE | 2018-10-01 14:28 | Hospitalist Progress Note ---
Date of Service October 01, 2018 Assessment & Plan (1) Angioedema: Acute laryngeal edema presumed angioedema 2/2 unknown antigen. C4 and tryptase pending. Cont prednisone, famotidine and zyrtec. New EpiPen to be given at discharge. Refer to outpatient Allergy/Immunnology. (2) Sinus pause: no events on telemetry overnight. Per Cardiology, avoid AV christopher blocking agents. Cont monitoring on telemetry for now until cleared by Cardiology to come off. (3) Hypertension: Around goal, however, not quite there. Starting Norvasc now, which was documented in Cardiology note as preferred agent to add. (4) Sleep apnea: cont nightly CPAP (5) Acute respiratory failure: 2/2 angioedema, s/p extubation and doing well (6) Morbid obesity: (7) DVT prophylaxis: Heparin Conditional Code status Dispo-pending DC to home within next 1-2 days. Awaiting definitive cardiac recs regarding bradycardia and demonstrated stability out of ICU. Luz Maria Friend DO [facility] Hospitalist Subjective 73-year-old man presented to the ER with facial and throat swelling as well as shortness of breath. It had started approximately 8 hours prior to arrival and the patient reported his tongue felt sore the night prior and his voice was raspy. He reports not being able to breathe when he woke up. He was reportedly given an EpiPen prehospitalization which did not help. He was subsequently intubated in the ER for respiratory failure and admitted to the ICU. He was treated with famotidine, Benadryl, dexamethasone and improved and was subsequently extubated on 09/29 with continued improvement clinically. Cardiology was consulted for a sinus pause which was suspected to be vagally mediated in the setting of angina at. Avoidance of AV christopher blocking agents was also recommended. A 2D echocardiogram demonstrated preserved left ventricular systolic function. The patient was also placed on amlodipine 5 mg daily in the setting of uncontrolled high blood pressure this admission. Today he is resting comfortably without any symptoms. He reports being able to ambulate. He is not constipating and moving his bowels regularly. He has no issues with urination. He denies any pain. He reports no swelling of his tongue or throat at this time. He is swallowing and eating and drinking without difficulties. He has some intermittent issues with memory loss but he is aware of why he is here and he is oriented to person place and time. He demonstrates good understanding of the situation. Daughter is at bedside today. Review of Systems Review of Systems: at least ten systems were reviewed and negative except as indicated in HPI above. Physical Exam Physical Exam: CONSTITUTIONAL: obese, vitals as above, generally well- appearing EYES: normal conjuctivae, no scleral icterus ENT: oropharynx clear, no maxillary or ethmoid sinus tenderness NECK: trachea midline, no lymphadenopathy RESPIRATORY: clear to auscultation bilaterally, no crackles, rales or wheezes, normal respiratory effort CARDIOVASCULAR: regular rate and rhythm, S1 and 2 heard without murmurs, gallops or rubs, no JVD, no peripheral edema GASTROINTESTINAL: normal bowel sounds, soft, protuberant, nontender, nondistended MUSCULOSKELETAL: strength 5/5 throughout, head is normocephalic and atraumatic SKIN: warm and dry NEUROLOGIC: CN 2-12 grossly intact, no gross focal deficits. Some issues with remembering events related to admission. PSYCHIATRIC: alert cooperative and oriented to person, place and time. Results & Data Vital Signs (Past 12 Hours) Vital Signs Temp Pulse Pulse Resp BP Pulse Ox Pulse Ox 10/01/18 13:24 94 10/01/18 12:11 36.9 C 82 18 143/88 H 96 10/01/18 08:00 72 96 10/01/18 07:07 37.0 C 74 18 142/84 H 95 10/01/18 04:00 36.5 C 71 19 147/83 H 96 Medications Administered Current Inpatient Medications Cetirizine HCl (Zyrtec) 10 mg PO QAM REPLACED BY [facility] Stop: 10/30/18 08:59 Last Admin: 10/01/18 08:37 Dose: 10 mg Documented by: Dextrose (Dextrose 50%) 25 - 50 ml IV UD PRN; Protocol PRN Reason: Hypoglycemia Protocol Stop: 10/26/18 11:13 Famotidine (Pepcid) 20 mg PO BID REPLACED BY [facility] Stop: 10/30/18 08:59 Last Admin: 10/01/18 08:37 Dose: 20 mg Documented by: Glucagon (Glucagen) 1 mg SQ UD PRN; Protocol PRN Reason: Hypoglycemia Protocol Stop: 10/26/18 11:13 Glucose (Glucose 40%) 15 - 30 gm PO UD PRN; Protocol PRN Reason: Hypoglycemia Protocol Stop: 10/26/18 11:13 Glucose (Dex4 Glucose) 4 - 8 tabs PO UD PRN; Protocol PRN Reason: Hypoglycemia Protocol Stop: 10/26/18 11:13 Guaifenesin/Codeine Phosphate (Robitussin-Ac Sugar Free) 5 ml PO Q6H PRN PRN Reason: Cough Stop: 10/29/18 20:43 Heparin Sodium (Porcine) (Heparin Sodium (Porcine)) 5,000 units SQ Q8H TERRY Stop: 10/26/18 13:59 Last Admin: 10/01/18 14:17 Dose: 5,000 units Documented by: Insulin Aspart (Novolog Flexpen) 0 units SC ACHS REPLACED BY [facility] Stop: 10/31/18 07:29 Last Admin: 10/01/18 12:04 Dose: Not Given Documented by: Miscellaneous (Carbohydrates For Hypoglycemia) 15 - 30 gm PO UD PRN PRN Reason: Hypoglycemia Treatment Stop: 10/26/18 11:13 Miscellaneous Information (Consult Glycemic Management Pharmacy) 1 ea N/A UD PRN; Protocol PRN Reason: Consult Stop: 10/26/18 12:04 Prednisone (Prednisone) 40 mg PO DAILY REPLACED BY [facility] Stop: 11/03/18 08:59 Last Admin: 10/01/18 08:37 Dose: 40 mg Documented by: (1) Angioedema Encounter type: initial encounter Qualified Code(s): T78.3XXA - Angioneurotic edema, initial encounter (2) Hypertension Hypertension type: essential hypertension Qualified Code(s): I10 - Essential (primary) hypertension
[2018-10-01] MEDS: AMLODIPINE BESYLATE 5 MG TAB PO SCH (15:16)
[2018-10-02] MEDS: HEPARIN SOD 5,000 UNIT/0.5 ML VIAL SQ SCH ×2 (06:04→13:59)
[2018-10-02 06:36] LABS: Hematocrit (blood only) 42.6 % (42-52); Hemoglobin 14.6 g/dL (14.0-18.0); Mean Corpuscular Hgb Conc 34.3 g/dL (32-36); Mean Corpuscular Volume 80.1 fL (80-100); Mean Platelet Volume 8.8 fL (7.4-10.4); Platelet Count 316 K/uL (130-400); RDW Standard Deviation 40.5 fL (36.4-46.3); Red Blood Count 5.32 M/uL (4.7-6.1); White Blood Count 11.16 K/uL (4.8-10.8)
[2018-10-02 07:04] LABS: BUN Creatinine Ratio 27.3 (10-20); Creatinine Clr Calc Pharmacy 96.8 ml/min; Est GFR (African American) 101.1; Est GFR (Non-African American) 87.2; Magnesium 2.3 mg/dl (1.8-2.4); Potassium 3.4 mmol/L (3.5-5.1)
[2018-10-02] MEDS: AMLODIPINE BESYLATE 5 MG TAB PO SCH (08:01)
[2018-10-02] MEDS: CETIRIZINE HCL 10 MG TABLET PO SCH (08:01)
[2018-10-02] MEDS: FAMOTIDINE 20 MG TAB PO SCH (08:01)
[2018-10-02] MEDS: predniSONE 20 MG TAB PO SCH (08:01)
[2018-10-02] MEDS: INSULIN ASPART 100 UNITS/ML 3 ML PEN SC SCH ×2 (08:01→11:43)
--- NOTE | 2018-10-02 13:47 | Discharge Summary ---
Date of Service October 02, 2018 Admission HPI Per Admitting Provider This is a 73-year-old male who has a significant past medical history of HTN, HLD, morbid obesity, PATEL on CPAP who presents to [facility] secondary to angioedema. History provided from records and other providers. Only medication took this morning was aspirin. Patient presented to ED with shortness of breath and airway swelling. He was transferred to ICU for intubation under fiberoptic bronchoscope. Unable to obtain history or ROS from patient. Of note patient does have a significant past medical history of anaphylaxis and angioedema in past back in January 2016. He presented to ED 01/22/2016 with swelling around left eye and rash on multiple area of scalp. He had similar reaction 1 month prior which was thought to be secondary to lisinopril therefore this was discontinued. He further was felt to have possibly had cellulitis and given 1 dose of IV Unasyn along with Augmentin. When walking outside the next day he started developing shortness of breath weakness and watering of his eyes that became progressively worse. He took Benadryl without improvement and therefore was sent to ED. He was given Benadryl and IV steroids and was admitted. Did not require intubation. There was also question if he had allergic reaction to Solu-Medrol giving increased rash and itching so this was eventually discontinued. He was discharged home from his hospitalization on Zyrtec 10 mg twice daily. He did follow up with outpatient clipper counters Dr. Quiroz for rast testing. He tested + for seasonal allergies. Admission Exam Per Admitting Provider Gen: WD/WN, M, + intubated in no resp distress, drowsy but opens eyes to verbal stimulation, lying in bed, Head: Normocephalic, Atraumatic Eyes: Sclera normal, b/l conjunctival injection, PERRLA ENT: +obscured due to ET tube Neck: supple, no adenopathy, No JVD, Resp: +ET Tube, Clear to auscultation b/l with good chest wall rise, normal insp/exp effort, no accessory muscle use CV: regular rate, regular rhythm, no murmur, rub, gallop, or ectopy Abd: +BS x 4, protuberant abd, soft, nontender, nondistended Musculoskeletal: moves extremities active rom x 4, strength intact, 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 Extremities: No edema bilaterally Skin: warm, moist, no rash, negative turgor, cap refill < 2sec Neuro:unable to assess given ET tube/somnolence : deferred Principal Diagnosis Acute respiratory failure Angioedema HTN Discharge Data Allergies Allergy/AdvReac Type Severity Reaction Status Date / Time lisinopril Allergy Severe LIP Verified 01/26/16 17:38 SWELLING,?FROM CPAP OR LISINOPRIL amoxicillin Allergy Intermediate hives,swell Verified 01/23/16 21:05 ing/redness clavulanic acid Allergy Intermediate hives,swell Verified 01/23/16 21:05 ing/redness Penicillins AdvReac Intermediate SHORTNESS Verified 01/24/16 12:02 OF BREATH Cephalosporins AdvReac Unknown KEFLEX-FEVER Verified 01/23/16 20:00 BLISTERS Consultations 09/26/18 11:14 Consult Case Management - Discharge Planning Routine 09/28/18 09:45 Consult Cardiology Routine Hospital Course (1) Acute respiratory failure: (2) Anaphylactic reaction: (3) Angioedema: (4) Sinus pause: (5) Hypertension: (6) Sleep apnea: (7) Morbid obesity: (8) HLD (hyperlipidemia): 73-year-old man presented to the ER with facial and throat swelling as well as shortness of breath. It had started approximately 8 hours prior to arrival and the patient reported his tongue felt sore the night prior and his voice was raspy. He reports not being able to breathe when he woke up. He was reportedly given an EpiPen prehospitalization which did not help. He was subsequently intubated in the ER for respiratory failure and admitted to the ICU. He was treated with famotidine, Benadryl, dexamethasone and improved and was subsequently extubated on 09/29 with continued improvement clinically. Cardiology was consulted for a sinus pause which was suspected to be vagally mediated in the setting of anaphylaxis. Avoidance of AV christopher blocking agents was recommended. A 2D echocardiogram demonstrated preserved left ventricular systolic function. Amlodipine was started for increased blood pressure control. Over the next two days he was monitored on telemetry with no further pauses or arrythmias noted.He was having regular bowel movements. He has no issues with urination. He denied any pain or swelling of his tongue or throat. He was swallowing and eating and drinking without difficulties. He has some intermittent issues with spotted memory loss around the event; this improved daily. He demonstrated good understanding of the situation. After 48 hours, he was considered stable for discharge. He was mentating and ambulating at baseline and was tolerating PO. He was hemodynamically stable and afebrile. He was discharged with a new EpiPen and with recommended referral to Immunology in the setting of recurrent idiopathic angioedema. He was given a primary care followup appointment within one week. Total Time Total Time Spent Total Time Spent (In Minutes): 60 minutes Discharge Plan Discharge Items Patient Disposition: Home - Self-Care Reason For Visit: ANGIOEDEMA Discharge Diagnosis: angioedema acute respiratory failure HTN Condition: Good Discharge Goals: Improve disease control and Improve function Activity: Resume your previous activity Non-emergency contact: Primary Care Provider Call non-emergency contact if: you have any medication questions, your symptoms worsen, your pain is concerning for you and you have a fever Follow-up/Referrals: Elijah Garnett MD [Primary Care Provider] - Diet: Regular Addtl Provider Instructions: Please take all medications as instructed on discharge list below. You have the following appointment with primary care: Date & Time 10/08/2018 1:00 PM Provider Elijah Garnett MD Department Internal Medicine [facility] Your blood pressure was elevated while in the hospital and you were placed on a blood pressure medication. This will need to be reviewed at your follow-up appointment above with a repeat blood pressure check. Please keep Epipen with you at all times in case of emergencies. It is strongly recommended that you be referred to an Allergy/principal bioinformatics specialist to help identify the cause of your recurrent angioedema. It was a pleasure taking care of you! Please call if you have any questions or problems. You can reach a [facility] hospitalist on duty at [facility] 24 hours a day by calling [phone]. Take care of yourself. Luz Maria Friend, DO [facility] Hospitalist Prescriptions: New cetirizine 10 mg Tablet 10 mg PO QAM 14 Days Qty: 14 RF: 0 amlodipine [Norvasc] 5 mg Tablet 5 mg PO QAM Qty: 30 RF: 1 famotidine 20 mg Tablet 20 mg PO BID 14 Days Qty: 28 RF: 0 prednisone 20 mg Tablet 40 mg PO DAILY Qty: 4 RF: 0 epinephrine [EpiPen 2-Henrique] 0.3 mg/0.3 mL auto-injector 0.3 mg IM Q3H PRN (Reason: allergic reaction) Qty: 1 RF: 0 Continued aspirin [Aspirin Low Dose] 81 mg Tablet,Delayed Release (Dr/Ec) 81 mg PO DAILY RF: 0 Stand-Alone Forms: [facility] Discharge Orders: Discharge Order (Routine); Ordered 10/02/18 Ordered By: Luz Maria Friend Admission Data Admit Date/Time: 09/26/18 10:48 Attending Provider: Luz Maria Friend Admit Provider: Mika Mcconnell Primary Care Provider: Elijah Garnett Other Providers: Mika Mcconnell ; David Khan Service: Telemetry Other Interventions: Discharge Summary Assessment (RN) Last Done: 10/02/18 14:09 DC Date/Time DO NOT enter until pt leaves facility: 10/02/18 14:39
== END 2018-10-02 14:39 | disposition home or self-care (01) | DRG 208 ==
LOC: ED 10:14 → 1E 10:48 → SUATTDRO 10:48 → 1E 10:57 → 2S 09-30 20:22
DX: E66.01 Morbid (severe) obesity due to excess calories; J96.00 Acute respiratory failure, unspecified whether with hypoxia or hypercapnia; R00.1 Bradycardia, unspecified; E87.6 Hypokalemia; T50.905A Adverse effect of unspecified drugs, medicaments and biological substances, initial encounter; Z88.8 Allergy status to other drugs, medicaments and biological substances; Z68.42 Body mass index [BMI] 45.0-49.9, adult; Z79.82 Long term (current) use of aspirin; I45.5 Other specified heart block; T78.3XXA Angioneurotic edema, initial encounter; J38.4 Edema of larynx; E78.5 Hyperlipidemia, unspecified; T41.295A Adverse effect of other general anesthetics, initial encounter; Z88.0 Allergy status to penicillin; I10 Essential (primary) hypertension; T45.0X5A Adverse effect of antiallergic and antiemetic drugs, initial encounter; G47.33 Obstructive sleep apnea (adult) (pediatric); T78.2XXA Anaphylactic shock, unspecified, initial encounter; R41.0 Disorientation, unspecified

== ENCOUNTER 2018-12-25 17:56 | Observation (INO) ==
[2018-12-25] MEDS ORDERED: DiphenhydrAMINE HCL 50 MG/ML VIAL IV STA (18:18)
[2018-12-25] MEDS ORDERED: EPINEPHRINE ADULT AUTO-INJECT 0.3 MG SYR IM STA (18:18)
[2018-12-25] MEDS ORDERED: methylPREDNISolone 125 MG/2 ML VIAL IV STA (18:18)
[2018-12-25] MEDS ORDERED: EPINEPHrine INJ 1 MG/ML AMP IM STA (18:20)
--- NOTE | 2018-12-25 18:33 | Emergency Department Note ---
Entered by Dottie Adamson acting as a scribe for History of Present Illness General Chief complaint: Allergic Reaction Stated complaint: POSSIBLE ALLERGIC REACTION - SWOLLEN TONGUE Time Seen by Provider: 12/25/18 18:04 Source: patient and family History of Present Illness Provider complaint: allergic reaction Onset (ago): hour(s) (12) Severity: similar to prior episodes (in September) Pain Consistency: + other (episode) Maximum Pain Intensity: 5 Quality: + other (allergic reaction) Associated symptoms: + denies other symptoms (hives, itchiness), + shortness of breath and + other (swollen eye, swollen bottomlip, "tight throat", left arm swelling, left shoulder pain); no chest pain and no nausea/vomiting Treatments prior to arrival: other (2 Bendaryl) The patient is a 73 year old male who presents to the ED with complaints of an episode of an allergic reaction that began 12 hours ago. The patient states that he had a similar episode in September, and was immediately admitted to the ICU and had to be intubated due to its severity. Per daughter, the doctors were never able to figure out what caused his allergic reaction last time. The patient states that ever since the episode in September, his voice has been more raspy than usual. Per daughter, the patient voice sounds much worse today which is concerning to her. The patient states that he woke up this morning with a swollen eye, swollen bottom lip, shortness of breath, tight throat, left arm swelling and left shoulder pain. The patient states that he took 2 Benadryl today. The patient denies nausea, vomiting, hives, itchiness and chest pain. Home Medications Home Medications Medication Instructions Recorded Confirmed Type epinephrine [EpiPen 2-Henrique] 0.3 mg IM Q3H PRN #1 ea 10/02/18 12/25/18 Rx cetirizine [Zyrtec] 10 mg PO HS 12/25/18 12/25/18 History diphenhydramine HCl [Banophen] 50 mg PO .Q4-6HRS PRN 12/25/18 12/25/18 History ibuprofen [Advil] 400 mg PO Q6H PRN 12/25/18 12/25/18 History prednisone 40 mg PO UD PRN 12/25/18 12/25/18 History Allergies Allergy/AdvReac Type Severity Reaction Status Date / Time lisinopril Allergy Severe LIP Verified 12/25/18 19:12 SWELLING,?FROM CPAP OR LISINOPRIL amoxicillin Allergy Intermediate hives,swell Verified 12/25/18 19:12 ing/redness clavulanic acid Allergy Intermediate hives,swell Verified 12/25/18 19:12 ing/redness Cephalosporins AdvReac Intermediate KEFLEX-FEVER Verified 12/25/18 19:12 BLISTERS Penicillins AdvReac Intermediate SHORTNESS Verified 12/25/18 19:12 OF BREATH Past Med/Surg History Medical History HLD (hyperlipidemia) (Chronic) no meds Morbid obesity (Chronic) Sigmoid diverticulosis (Chronic) Hypertension (Chronic) no meds Sleep apnea (Chronic) cpap Drug reaction (Acute) Angioedema was admitted on 09/26/18 had to be vented in ICU for severe angioedema, etiology unknown pt stated he was to have allergy testing at the end of November--no medications currently besides epipen prn. 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 and A total of 10 systems reviewed and were otherwise negative Physical Exam Vital Signs Vital Signs - 24 hr 12/25/18 18:00 12/25/18 18:11 12/25/18 18:19 Temperature 36.9 C Temperature Source Oral Sepsis Recent Fever Within 48 Hours No Sepsis New/Unexplained Change in Mental Status No Sepsis Action Taken by Nursing No Action Required Pulse Rate 116 H 105 H Pulse Rate from SpO2 Sensor Pulse Rhythm Regular Pulse Strength Normal Respiratory Rate 22 16 Respiratory Effort / Characteristics Non-Labored Spontaneous Respiratory Depth Normal Respiratory Pattern Regular Blood Pressure 144/87 H Blood Pressure Mean 106 Blood Pressure Position Sitting Pulse Oximetry 93 94 Oxygen Delivery Method Room Air Room Air Room Air 12/25/18 18:30 12/25/18 18:51 12/25/18 19:02 Temperature Temperature Source Sepsis Recent Fever Within 48 Hours Sepsis New/Unexplained Change in Mental Status Sepsis Action Taken by Nursing Pulse Rate 100 H 92 H 95 H Pulse Rate from SpO2 Sensor Pulse Rhythm Pulse Strength Respiratory Rate 23 32 H 27 H Respiratory Effort / Characteristics Respiratory Depth Respiratory Pattern Blood Pressure 129/88 120/67 Blood Pressure Mean 101 84 Blood Pressure Position Pulse Oximetry 93 96 95 Oxygen Delivery Method Room Air Room Air Room Air 12/25/18 19:31 12/25/18 20:00 12/25/18 20:01 Temperature Temperature Source Sepsis Recent Fever Within 48 Hours Sepsis New/Unexplained Change in Mental Status Sepsis Action Taken by Nursing Pulse Rate 105 H 104 H 107 H Pulse Rate from SpO2 Sensor 105 H 108 H Pulse Rhythm Pulse Strength Respiratory Rate 18 14 24 Respiratory Effort / Characteristics Respiratory Depth Respiratory Pattern Blood Pressure 122/74 131/86 Blood Pressure Mean 90 101 Blood Pressure Position Pulse Oximetry 96 94 92 Oxygen Delivery Method Room Air General: Non-ill appearing older male in no acute distress. HEENT: Swelling of eyes and redness to sclera bilaterally, right greater than left. Large tongue, possible swelling underneath but patient says it feels at baseline, no fullness. Normal cephalic atraumatic. Pupils are equal round and reactive to light. Extraocular movements are intact. Oropharynx is pink with moist mucous membranes. Neck: Supple with a midline trachea. No meningeal signs or stiffness, no JVD or bruits. No Stridor. Chest: Clear to auscultation bilaterally. No wheezes or rhonchi. No increased work of breathing. Heart: regular rate and rhythm. Abdomen: Soft nontender, nondistended without rebound guarding or rigidity. Extremities: No cyanosis clubbing or edema. No calf tenderness or asymmetry Spine/Back. Non tender to palpation. No CVA tenderness Skin: No hives. Good turgor without rashes. Neurologic exam: Cranial nerves two through 12 are intact. Motor and sensation are intact and symmetrical throughout. Course 180: Past medical records reviewed. The patient was evaluated in room A3. A complete history and physical exam was performed. 1843: I reevaluated the patient and he seems comfortable. The patient states that he does not believe his tongue and throat are swollen. 5: I reevaluated the patient and he says he feels fine. He denies feelings of swelling in his throat and tongue. 1920: I reevaluated the patient and he says he feels well. 1941: I discussed the patient[facility] He will evaluate the patient for further management. Consultations Consultation #1: I discussed the patient's [facility] He will evaluate the patient for further management. Time: 19:42 Administered Medications Cetirizine HCl (Zyrtec) 10 mg PO HS TERRY Stop: 01/24/19 21:25 Last Admin: 12/25/18 23:19 Dose: 10 mg Documented by: [id number] Dexamethasone Sodium Phosphate (4 mg/ Syringe) 1 mls @ 1 mls/min IV Q6H TERRY Stop: 01/24/19 21:59 Last Admin: 12/25/18 23:45 Dose: 1 mls/min Documented by: [id number] Discontinued Medications Diphenhydramine HCl (Benadryl) 50 mg IV NOW STA Stop: 12/25/18 18:19 Last Admin: 12/25/18 18:47 Dose: 50 mg Documented by: [id number] Epinephrine HCl (Epipen) 0.3 mg IM NOW STA Stop: 12/25/18 18:19 Last Admin: 12/25/18 18:56 Dose: Not Given Documented by: [id number] Epinephrine HCl (Epinephrine) 0.3 mg IM NOW STA Stop: 12/25/18 18:21 Last Admin: 12/25/18 18:46 Dose: 0.3 mg Documented by: [id number] Ranitidine HCl 50 mg/ Dextrose 102 mls @ 200 mls/hr IV NOW STA Stop: 12/25/18 18:48 Last Infusion: 12/25/18 19:42 Dose: 0 mls/hr Documented by: [id number] Admin: 12/25/18 19:01 Dose: 200 mls/hr Documented by: [id number] Methylprednisolone (Solumedrol) 125 mg IV NOW STA Stop: 12/25/18 18:19 Last Admin: 12/25/18 18:47 Dose: 125 mg Documented by: [id number] Medical Decision Making Differential Diagnosis Differentials include urticaria, allergic reaction, angioedema, David's angina. Medical Records Attestation: I reviewed the patient's medical records. Home Medications Current Medication List: was personally reviewed by me Laboratory Data Attestation: I reviewed the patient's lab results. Result diagrams: 12/25/18 18:38 12/25/18 18:38 Lab Results 12/25/18 12/25/18 Range/Units 18:38 18:38 WBC 7.08 (4.8-10.8) K/uL RBC 5.47 (4.7-6.1) M/uL Hgb 15.0 (14.0-18.0) g/dL Hct 44.0 (42-52) % MCV 80.4 (80-100) fL MCH 27.4 (25-34) pg MCHC 34.1 (32-36) g/dL RDW Std Deviation 43.0 (36.4-46.3) fL RDW Coeff of Kip 14.6 H (11.5-14.5) % Plt Count 179 (130-400) K/uL MPV 9.0 (7.4-10.4) fL Immature Gran % (Auto) 0.3 % Neut % (Auto) 76.5 % Lymph % (Auto) 14.8 % Pershing % (Auto) 7.6 % Eos % (Auto) 0.7 % Baso % (Auto) 0.1 % Immature Gran # (Auto) 0.02 (0.00-0.02) K/uL Neut # (Auto) 5.41 (1.4-6.5) K/uL Lymph # (Auto) 1.05 L (1.2-3.4) K/uL Pershing # (Auto) 0.54 (0.11-0.59) K/uL Eos # (Auto) 0.05 (0-0.5) K/uL Baso # (Auto) 0.01 (0-0.2) K/uL Sodium 138 (136-145) mmol/L Potassium (3.5-5.1) mmol/L Chloride 107 (98-107) mmol/L Carbon Dioxide 24 (21-32) mmol/L Anion Gap 7.0 (3-11) BUN 12 (7-18) mg/dl Creatinine 0.93 (0.6-1.4) mg/dl Est Cr Clr Drug Dosing 87.9 ml/min Est GFR ( Amer) 95.4 Est GFR (Non-Af Amer) 82.3 BUN/Creatinine Ratio 12.7 (10-20) Glucose 119 H (70-99) mg/dl Calcium 8.6 (8.5-10.1) mg/dl Total Bilirubin 1.0 (0.2-1) mg/dl AST (15-37) U/L ALT 20 (12-78) U/L Alkaline Phosphatase 75 (45-117) U/L Total Protein 7.4 (6.4-8.2) gm/dl Albumin 3.1 L (3.4-5.0) gm/dl Globulin 4.3 H (2.5-4.0) gm/dl Albumin/Globulin Ratio 0.7 L (0.9-2) Lipase 84 (73-393) U/L ECG Data Attestation: I personally reviewed and interpreted this ECG as follows: Indication: other (metabolic) Rate (beats per minute): 94 Rhythm: normal sinus Findings: no PAC, no PVC, no ST depression, no ST elevation, no acute ischemic change and no ectopy Comparison ECG Date: from (09/28/2018) Change: no significant change Blood Pressure Blood Pressure Findings: Elevated blood pressure Blood Pressure Disposition: further management by hospitalist CARMENZA Koch This patient comes in as described above. He was placed in room A3. His history of significant allergic reactions. He woke up this morning has had some swelling in his face. He feels like he may have some lower lip swelling as well. His voice feels a little raspy although he says is been that way since he was intubated for his last allergic reaction although it may be worse today. denies any shortness of breath at present. he does not feel his tongue is swollen or the posterior oropharynx . He has had no hives or rash or nausea or vomiting. On my exam, he looks well he is mildly tachycardic but has stable vital signs. IV access was established and blood work was obtained I reviewed his old records it sounds like there is been no diagnosis of hereditary ang ioedema and this is been unknown so far he is not on MAGALY inhibitor. Given his history was treated aggressively with IV Solu-Medrol, IV Benadryl, IV Zantac as well as epinephrine IM. He was reassessed frequently. The floor of his mouth is soft and he has nothing to suggest David's angina at this point. He is also afebrile. He remained stable and in significantly better. He has nothing to suggest infection or electrolyte or metabolic abnormality. His EKG is unremarkable is nothing to suggest arrhythmia or acute coronary syndrome. Given his significant history, I do think he needs to be observed overnight at this point his airway is intact and I do not feel he needs intubation. He says he feels much better and is in no distress. I consulted Dr. Chinchilla, who who saw him and will admit/observe him for these measure Impression & Plan Angioedema, Allergic reaction Discharge Plan Visit Data *Final* Discharge Date/Time: 12/25/18 20:52 Chief Complaint: Allergic Reaction Stated Complaint: POSSIBLE ALLERGIC REACTION - SWOLLEN TONGUE ED Provider: Mika Rondon Discharge Problem: Angioedema, Allergic reaction Patient Disposition: Admitted As Inpatient Discharge Instructions Interventions: ED Discharge Assessment Last Done: 12/25/18 20:52 Discharge Problem: Angioedema Qualifiers: Encounter type: initial encounter Qualified Code(s): T78.3XXA - Angioneurotic edema, initial encounter Allergic reaction Qualifiers: Encounter type: initial encounter Qualified Code(s): T78.40XA - Allergy, unspecified, initial encounter The scribe's documentation has been prepared under my direction and personally reviewed by me in its entirety. I confirm that the note above accurately reflects all work, treatment, procedures, and medical decision making performed by me.
[2018-12-25 18:51] LABS: Basophils # (auto) 0.01 K/uL (0-0.2); Basophils % (auto) 0.1 %; Eosinophils # (auto) 0.05 K/uL (0-0.5); Eosinophils % (auto) 0.7 %; Immature Granulocytes # (auto) 0.02 K/uL (0.00-0.02); Immature Granulocytes % (auto) 0.3 %; Lymphocytes # (auto) 1.05 K/uL (1.2-3.4); Lymphocytes % (auto) 14.8 %; Mean Corpuscular Hgb Conc 34.1 g/dL (32-36); Mean Corpuscular Volume 80.4 fL (80-100); Monocytes # (auto) 0.54 K/uL (0.11-0.59); Monocytes % (auto) 7.6 %; Neutrophils # (auto) 5.41 K/uL (1.4-6.5); Neutrophils % (auto) 76.5 %; Platelet Count 179 K/uL (130-400); RDW Coefficient of Variation 14.6 % (11.5-14.5); Red Blood Count 5.47 M/uL (4.7-6.1); White Blood Count 7.08 K/uL (4.8-10.8)
[2018-12-25 19:15] LABS: Albumin Globulin Ratio 0.7 (0.9-2); Albumin Level 3.1 gm/dl (3.4-5.0); BUN Creatinine Ratio 12.7 (10-20); Calcium 8.6 mg/dl (8.5-10.1); Creatinine Clr Calc Pharmacy 87.9 ml/min; Est GFR (African American) 95.4; Est GFR (Non-African American) 82.3; Globulin 4.3 gm/dl (2.5-4.0); Total Protein 7.4 gm/dl (6.4-8.2)
[2018-12-25] MEDS ORDERED: DiphenhydrAMINE HCL 50 MG/ML VIAL IV PRN (21:26)
[2018-12-25] MEDS ORDERED: EPINEPHRINE ADULT AUTO-INJECT 0.3 MG SYR IM PRN (21:26)
[2018-12-25] MEDS ORDERED: ACETAMINOPHEN 325 MG TAB PO PRN (21:26)
[2018-12-25] MEDS ORDERED: CETIRIZINE HCL 10 MG TABLET PO SCH (21:26)
--- NOTE | 2018-12-25 21:57 | History and Physical Report ---
DATE OF ADMISSION: 12/25/2018 CHIEF COMPLAINT: Allergic reaction. HISTORY OF PRESENT ILLNESS: This is a 73-year-old male with past medical history significant for hypertension, currently not on medication, obesity, sleep apnea, presents with allergic reaction. The patient has history of recurrent angioedema. He initially had anaphylaxis on angioedema in 01/2016. At that time, he presented with swelling around the left eye and rash in multiple areas of scalp and he had a similar reaction one month prior to that which was thought to be secondary to lisinopril and it was discontinued. Just Before January 2016 incident, he was treated with Augmentin and Unasyn for cellulitis. Developed shortness of breath and watering of the eyes that got progressively worse, Benadryl did not improve it, so he came to the ER. He was given Benadryl IV steroids and was admitted, at that time he did not require any intubation and there was question of possible allergic reaction to Solu-Medrol, given increased rash and itching so it was discontinued. He was discharged on Zyrtec 10 mg b.i.d. and also followed up with sports medicine trainer, Dr. Quiroz for RAST testing. He was tested for positive for seasonal allergies. Again in 09/2018, he presented with facial and throat swelling as well as shortness of breath and was not able to breathe. He was given EpiPen prehospitalization which did not help. He was subsequently intubated in the ER for respiratory failure and admitted to ICU. He was treated with famotidine, Benadryl, and dexamethasone and was improved, subsequently extubated and was discharged home. At that time, he was also found to have sinus pause which was suspected to be vaguely mediated in the setting of anaphylaxis, avoidance of AV christopher blocking agents was recommended. 2D echo was okay. Amlodipine was started for increased blood pressure control, but the patient says his amlodipine was stopped by his PCP as his blood pressure had improved and he followed up with Allergy-Immunology on 12/17/2018, Dr. Maldonado Alvares. At that time, allergy serum IgE determinations were all negative. IgE and inflammatory markers were somewhat elevated. Complemental studies were normal, ruling out hereditary angioedema, cause of the recent angioedema thought to be still undetermined and was advised to follow up again. He was also given Zantac to take daily at bedtime and Benadryl 50 mg for any swelling reaction and also 2 tablets of 40 mg prednisone for significant swelling reaction and epinephrine for severe reactions and to go to emergency room. The patient says he lives with a 16-year-old autistic child. Last night, while on cpap he felt that he was having something going on and checked his eyes, eyes were red, but did not tell his family, around 1:30pm today his daughter went and checked on him and he had swelling of the tongue and some slurred speech and swelling of the face and neck and he was given Benadryl, and after some time he had 2 doses of 40 mg prednisone was given and they waited for some time and symptoms were not improving, so he was brought into the ER. In the ER, he received epinephrine, IV Solu-Medrol, IV Benadryl, and IV Zantac. His symptoms were much improved. Now his tongue swelling is improved. He is speaking fine but because of history, we were advised to admit the patient to hospital and observe. Currently, denies any headache, no blurred vision, no earache, no runny nose, has some sore throat, no cough, no fever, no chills. He says he is swallowing okay. Denies any shortness of breath at this time. No chest pain, no nausea, no vomiting, no abdominal pain. Normal bowel and bladder movements. No hematuria, no blood in the stools or black stools. Appetite is okay. Sleeping okay. Ambulating okay. No swelling in the legs, no rash. Currently resting comfortably and hemodynamically stable. ALLERGIES: CEPHALOSPORINS, PENICILLINS, LISINOPRIL, PROPOFOL. PAST MEDICAL HISTORY: As mentioned above. PAST SURGICAL HISTORY: Colonoscopy, excess hyperplastic alveolar mucosa. MEDICATIONS: The patient is on Zyrtec 10 mg p.o. at bedtime, Benadryl 50 mg p.r.n. onset of swelling reaction, epinephrine for life-threatening allergic symptoms, prednisone 40 mg at onset of significant swelling reaction. FAMILY HISTORY: Significant for father of aids from post-transfusion at age of 53. Brother has Alzheimer disease. Mother had multiple myeloma. Daughter has migraines. SOCIAL HISTORY: , lives with a 16-year-old autistic son. Former smoker, smoked 6 months to a year in [email or web address] in 1967. Alcohol rarely. No drug use. REVIEW OF SYMPTOMS: As per HPI. Rest of review of systems negative. PHYSICAL EXAMINATION: GENERAL: The patient is morbidly obese, not in acute distress. VITAL SIGNS: Temperature 36.9, pulse 105, respiratory rate 18, blood pressure 132/74, oxygen 96% on room air. HEENT: No pallor, no icterus. Pupils equal, round, and reactive to light. NECK: No JVD, no neck masses, no carotid bruit. CARDIOVASCULAR: S1, S2 heard, regular rate and rhythm, no murmur, no gallop. RESPIRATORY SYSTEM: Normal AP diameter. No accessory muscle use. No wheezing, no crackles. ABDOMEN: Soft, bowel sounds present, nontender. No distention. CENTRAL NERVOUS SYSTEM: Cranial nerves II-XII grossly nonfocal. EXTREMITIES: No edema, no erythema. LABS: WBC 7.08, hemoglobin 15, hematocrit 44, platelets 179. Sodium 138, chloride 107, bicarbonate 24, BUN 12, creatinine 0.9, serum glucose 119, calcium 8.6, total bilirubin 1, ALT 20, alkaline phosphatase 75. Lipase 84. ASSESSMENT AND PLAN: This is a 73-year-old male who presents with allergic reaction. 1. Allergic reaction. History of recurrent angioedema. Recently saw Allergy-Immunology. No cause was determined, advised to take Zyrtec p.o. at bedtime and Benadryl and prednisone p.r.n. for swelling and epinephrine for severe reaction. Last night he noticed not feeling good, had some facial swelling, did not tell his family until 1:30pm today, was given Benadryl and prednisone at home, but symptoms did not improve. Currently, received epinephrine, IV Solu-Medrol, IV Benadryl, iv Zantac. . Currently, symptoms much improved. Hemodynamically stable. Because of history we will observe overnight in the hospital on tele floor. Continue with IV Decadron 4 mg every 6 hour( allergy to solumedrol?). Continue his home Zyrtec, IV Benadryl p.r.n. and p.o. Zantac. Needs again close followup again with Allergy-Immunology. 2. History of obstructive sleep apnea and morbid obesity, needs counseling. Continue CPAP at bedtime. 3. History of hypertension. Last admission was discharged on amlodipine, but the patient says it was stopped because the blood pressure was okay. We will monitor the blood pressure while he is in the hospital. 4. Deep venous thrombosis prophylaxis, sequential compression devices for now. 5. Disposition: Observation in tele. Level 1 full code. Expect to discharge home and follow with his family doctor and also with his Allergy-Medical Appliance Maker. [email or web address]
[2018-12-25] MEDS: DEXAMETHASONE SOD PHOSPHATE 4 MG in SYRINGE 0 ML IV SCH (23:45)
[2018-12-26] MEDS: DEXAMETHASONE SOD PHOSPHATE 4 MG in SYRINGE 0 ML IV SCH ×2 (04:26→11:20)
[2018-12-26 06:03] LABS: Hematocrit (blood only) 44.3 % (42-52); Hemoglobin 14.9 g/dL (14.0-18.0); Immature Granulocytes # (auto) 0.01 K/uL (0.00-0.02); Immature Granulocytes % (auto) 0.2 %; Lymphocytes % (auto) 12.5 %; Mean Corpuscular Hgb Conc 33.6 g/dL (32-36); Mean Corpuscular Volume 81.4 fL (80-100); Mean Platelet Volume 8.9 fL (7.4-10.4); Monocytes # (auto) 0.08 K/uL (0.11-0.59); Monocytes % (auto) 1.4 %; Neutrophils # (auto) 4.79 K/uL (1.4-6.5); Neutrophils % (auto) 85.9 %; Platelet Count 204 K/uL (130-400); RDW Coefficient of Variation 14.7 % (11.5-14.5); RDW Standard Deviation 43.2 fL (36.4-46.3); Red Blood Count 5.44 M/uL (4.7-6.1); White Blood Count 5.58 K/uL (4.8-10.8)
[2018-12-26 06:30] LABS: BUN Creatinine Ratio 14.7 (10-20); Est GFR (African American) 99.7; Magnesium 2.4 mg/dl (1.8-2.4); Potassium 4.4 mmol/L (3.5-5.1)
[2018-12-26 15:54] VITALS: PULSE 91; TEMP 98.4; O2SAT 99
[2018-12-26 16:41] VITALS: BP 137/99
--- NOTE | 2018-12-28 12:24 | Discharge Summary ---
Date of Service December 26, 2018 Admission HPI Per Admitting Provider DICTATED BY: Eben Chinchilla MD DATE OF ADMISSION: 12/25/2018 CHIEF COMPLAINT: Allergic reaction. HISTORY OF PRESENT ILLNESS: This is a 73-year-old male with past medical history significant for hypertension, currently not on medication, obesity, sleep apnea, presents with allergic reaction. The patient has history of recurrent angioedema. He initially had anaphylaxis on angioedema in 01/2016. At that time, he presented with swelling around the left eye and rash in multiple areas of scalp and he had a similar reaction one month prior to that which was thought to be secondary to lisinopril and it was discontinued. Just Before January 2016 incident, he was treated with Augmentin and Unasyn for cellulitis. Developed shortness of breath and watering of the eyes that got progressively worse, Benadryl did not improve it, so he came to the ER. He was given Benadryl IV steroids and was admitted, at that time he did not require any intubation and there was question of possible allergic reaction to Solu-Medrol, given increased rash and itching so it was discontinued. He was discharged on Zyrtec 10 mg b.i.d. and also followed up with [employer], Dr. Quiroz for RAST testing. He was tested for positive for seasonal allergies. Again in 09/2018, he presented with facial and throat swelling as well as shortness of breath and was not able to breathe. He was given EpiPen prehospitalization which did not help. He was subsequently intubated in the ER for respiratory failure and admitted to ICU. He was treated with famotidine, Benadryl, and dexamethasone and was improved, subsequently extubated and was discharged home. At that time, he was also found to have sinus pause which was suspected to be vaguely mediated in the setting of anaphylaxis, avoidance of AV christopher blocking agents was recommended. 2D echo was okay. Amlodipine was started for increased blood pressure control, but the patient says his amlodipine was stopped by his PCP as his blood pressure had improved and he followed up with Allergy[facility]Immunology on 12/17/2018, Dr. Maldonado Alvares. At that time, allergy serum IgE determinations were all negative. IgE and inflammatory markers were somewhat elevated. Complemental studies were normal, ruling out hereditary angioedema, cause of the recent angioedema thought to be still undetermined and was advised to follow up again. He was also given Zantac to take daily at bedtime and Benadryl 50 mg for any swelling reaction and also 2 tablets of 40 mg prednisone for significant swelling reaction and epinephrine for severe reactions and to go to emergency room. The patient says he lives with a 16-year-old autistic child. Last night, while on cpap he felt that he was having something going on and checked his eyes, eyes were red, but did not tell his family, around 1:30pm today his daughter went and checked on him and he had swelling of the tongue and some slurred speech and swelling of the face and neck and he was given Benadryl, and after some time he had 2 doses of 40 mg prednisone was given and they waited for some time and symptoms were not improving, so he was brought into the ER. In the ER, he received epinephrine, IV Solu-Medrol, IV Benadryl, and IV Zantac. His symptoms were much improved. Now his tongue swelling is improved. He is speaking fine but because of history, we were advised to admit the patient to hospital and observe. Currently, denies any headache, no blurred vision, no earache, no runny nose, has some sore throat, no cough, no fever, no chills. He says he is swallowing okay. Denies any shortness of breath at this time. No chest pain, no nausea, no vomiting, no abdominal pain. Normal bowel and bladder movements. No hematuria, no blood in the stools or black stools. Appetite is okay. Sleeping okay. Ambulating okay. No swelling in the legs, no rash. Currently resting comfortably and hemodynamically stable. ALLERGIES: CEPHALOSPORINS, PENICILLINS, LISINOPRIL, PROPOFOL. Principal Diagnosis SEVERE ALLERGIC REACTION -ALLERGEN IS NOT IDENTIFIED Discharge Exam Constitutional WD/WN, vitals as above no acute distress Eyes mild conjunctival redness /injection noted ENMT external ear and nose normal, oropharynx normal Mouth: no lip abnormality, no oropharynx abnormality, no oral mucosal abnormality and no tongue abnormality Neck trachea midline, no thyromegaly Respiratory normal respiratory effort, lungs clear to auscultation Cardiovascular RRR, no murmur, no edema Gastrointestinal (Abdomen) Inspection/Auscultation: + abdomen distended and normal bowel sounds Percussion/Palpation: abdomen soft; abdomen nontender Musculoskeletal no cyanosis or clubbing, extremities motor strength 5/5 Skin no rashes, warm and dry Neurologic PERRL, EOMI, accommodation nl, no face palsy, no dysarthria Psychiatric A+Ox3, euthymic affect Discharge Data Allergies Allergy/AdvReac Type Severity Reaction Status Date / Time lisinopril Allergy Severe LIP Verified 12/25/18 19:12 SWELLING,?FROM CPAP OR LISINOPRIL amoxicillin Allergy Intermediate hives,swell Verified 12/25/18 19:12 ing/redness clavulanic acid Allergy Intermediate hives,swell Verified 12/25/18 19:12 ing/redness Cephalosporins AdvReac Intermediate KEFLEX-FEVER Verified 12/25/18 19:12 BLISTERS Penicillins AdvReac Intermediate SHORTNESS Verified 12/25/18 19:12 OF BREATH Consultations 12/25/18 19:44 ED Decision to Admit Stat Hospital Course (1) Angioedema: symptom resolved completely due to allergic reaction presented with tongue /lip swelling causing difficulti to speak no hypoxia or SOB pt is not on ACEI/or ARBs no new drugs /no new food or new product usage will be discharged home with Medrol dose pack on Zyrtec( h1 meme already ) added H2 meme -femotidine pt is scheduled to see his branding specialist next week (2) Allergic reaction: presented with swelling of tongue /lips-causing difficulti to speak no hypoxia or SOB pt was given benadryl /steroid symptom resolved no particular offending agent identified pt stayed stable overnight -no hypoxia , no difficulti in speech ,feels fine to be discharged home has appointment scheduled with branding specialist pt already has Epi pen will be discharged with Medrol dose pack /H2 meme already on Zyrtec (3) Anaphylactic reaction: hx of prior severe anyphylactic reaction requing ICU admission /intibation for respiratory support presents this time with tongue swelling , which resolved with IV steroid /combination of H1 and H2 meme agent not sure of the inciting agent causing allergic reaction this time pt is asked to avoid NSAID close follow up with branding specialist stable to be discharged home today Total Time Total Time Spent Total Time Spent (In Minutes): 35MINS Total Time Includes: Examination of the Patient, Discharge Planning and Medication Reconciliation Discharge Plan Discharge Items Patient Disposition: Home - Self-Care Reason For Visit: ALLERGIC REACTION Discharge Diagnosis: SEVERE ALLERGIC REACTION Discharge Goals: Decrease discomfort and Therapeutic intervention Activity: Resume your previous activity Non-emergency contact: Primary Care Provider Call non-emergency contact if: you have any medication questions Follow-up/Referrals: Maldonado Alvares [Physician] - 12/29/18 3:45 pm Elijah Garnett MD [Primary Care Provider] - 01/01/19 11:05 am Diet: Regular Addtl Provider Instructions: [employer] FOLLOW-UP WITH ON 12/29/2018 AT 3:45 PM-AT [facility] FOLLOW-UP WITH DR. SALINAS ON 01/01/2019 AT 11:05 AM-AT [facility] New medications: 1. Medrol Dosepak: Take as directed: Steroid taper for allergic reaction(take with food) 2. Ranitidine 150 mg 1 tablet twice daily: For allergic reaction STOP TAKING Advil/ibuprofen-sometimes these group of drugs belonging to NSAID is associated with allergic reaction You can take abju-yho-jlkolbn Tylenol as needed for pain Prescriptions: New ranitidine HCl 150 mg Tablet 150 mg PO BID 30 Days Qty: 60 RF: 0 methylprednisolone [Medrol (Henrique)] 4 mg tablets,dose pack 4 mg PO UD Qty: 21 RF: 0 Continued epinephrine [EpiPen 2-Henrique] 0.3 mg/0.3 mL auto-injector 0.3 mg IM Q3H PRN (Reason: allergic reaction) Qty: 1 RF: 0 cetirizine [Zyrtec] 10 mg tablet 10 mg PO HS RF: 0 prednisone 20 mg tablet 40 mg PO UD PRN (Reason: TAKE @ ONSET OF SWELLING) RF: 0 diphenhydramine HCl [Banophen] 25 mg Tablet 50 mg PO .Q4-6HRS PRN (Reason: Allergic Reaction) RF: 0 Discontinued ibuprofen [Advil] 200 mg Tablet 400 mg PO Q6H PRN (Reason: Pain) RF: 0 Stand-Alone Forms: [facility]charge Orders: Discharge Order (Routine); Ordered 12/26/18 Ordered By: Ct Gurrola Admission Data Admit Date/Time: 12/25/18 20:25 Attending Provider: Ct Gurrola Admit Provider: Eben Chinchilla Primary Care Provider: Elijah Garnett Other Providers: Eben Chinchilla Service: Telemetry Other Interventions: Discharge Summary Assessment (RN) Last Done: 12/26/18 16:39 DC Date/Time DO NOT enter until pt leaves facility: 12/26/18 17:00
== END 2018-12-26 17:00 | disposition home or self-care (01) ==
LOC: 2S 17:56 → ED 17:56 → SUATTDRO 20:25 → 2S 20:52